=== PATIENT | female | born 1975 | race Caucasian/White ===

== ENCOUNTER 2024-10-09 20:10 | Observation (INO) ==
--- NOTE | 2024-10-09 20:28 | Emergency Department Note ---
History of Present Illness General Chief complaint: Leg Injury/Pain Stated complaint: BLOOD CLOT LEFT LEG POSSIBLE Time Seen by Provider: 10/09/24 20:26 History of Present Illness Maximum Pain Intensity: 6 This is a 49-year-old female that presents to the emergency department via private vehicle with complaints of "possible blood clot, left leg". Patient notes a "red ball" to the outside of her left knee. She notes area is very sore. She also notes some red streaking. She notes a history of blood clots and currently is on Coumadin. She also notes that she had a temperature at 6 PM around 101 F. She also feels chills. She did take acetaminophen for her symptoms. No chest pain or shortness of breath. She notes that she is in a left arm sling secondary to left arm fracture, following with [facility]. Home Medications Medication Instructions Recorded Confirmed Type acetaminophen 500 mg tablet 1,000 mg PO .Q6-8HR PRN Pain 10/09/24 10/09/24 History (Tylenol Extra Strength) fluticasone propionate 93 2 spray intranasal BID PRN 10/09/24 10/09/24 History mcg/actuation breath activated NEEDED aerosol (Xhance) omeprazole 40 mg capsule,delayed 40 mg PO DAILY 10/09/24 10/09/24 History release pramipexole 0.5 mg tablet 0.5 mg PO HS 10/09/24 10/09/24 History sertraline 50 mg tablet 50 mg PO HS 10/09/24 10/09/24 History warfarin 3 mg tablet (Jantoven) 3 mg PO DAILY 10/09/24 10/09/24 History warfarin 4 mg tablet (Jantoven) 4 mg PO DAILY 10/09/24 10/09/24 History oxycodone 5 mg tablet 5 mg PO Q6H PRN pain #15 tabs 10/10/24 Rx Allergies Allergy/AdvReac Type Severity Reaction Status Date / Time morphine Allergy Intermediate Hives Verified 10/10/24 07:25 Sulfa (Sulfonamide Allergy Intermediate Hives Verified 10/10/24 07:25 Antibiotics) Past Med/Surg History Problem List (Updated 10/10/24 @ 14:16 by Javed Griggs MD) Superficial thrombophlebitis Abnormal ultrasound of lower extremity (Acute) Anemia (Acute) Pain of left calf (Acute) Medical History (Updated 10/10/24 @ 14:16 by Javed Griggs MD) Anxiety Restless leg syndrome DVT (deep venous thrombosis) Prothrombin gene mutation CVA (cerebral vascular accident) Surgical History (Updated 10/10/24 @ 07:25 by Pearl Ross) History of lumbar fusion History of hysterectomy History of repair of atrial septal defect Family History (System 10/10/24 @ 07:25 by Pearl Ross) Other Cancer Diabetes Social History (System 10/10/24 @ 07:25 by Pearl Ross) Smoking Status: Current some day smoker Tobacco Type: Cigarettes Second Hand Exposure: No; Do You Dip or Chew Tobacco: No; Tobacco Cessation Education Requested by Patient: No Hx Alcohol Use: No Hx Substance Use: No Preferred Language: Wolof Communication Ability: Effective Sheet Catcher Required: No Beliefs That Will Affect Care: None Current Living Situation: Spouse Other Information That Helps Us Care for You: No Feels Safe at Home: Yes Safety Concerns: Feels Safe At This Time Assistive Devices: None Review of Systems A total of 10 systems reviewed and were otherwise negative Physical Exam Vital Signs Vital Signs - 24 hr 10/09/24 20:22 10/09/24 20:39 10/09/24 20:39 Temperature 36.7 C Temperature Source Oral Pulse Rate 106 H Pulse Rate [Finger] 76 Pulse Rhythm [Finger] Regular Pulse Strength [Finger] Normal Respiratory Rate 22 20 Respiratory Effort / Characteristics Non-Labored Spontaneous Non-Labored Spontaneous Respiratory Depth Normal Normal Respiratory Pattern Regular Regular Blood Pressure 135/84 Blood Pressure [Right Arm] 116/63 Blood Pressure Mean 101 Blood Pressure Mean [Right Arm] 80 Blood Pressure Position [Right Arm] Lying Pulse Oximetry 95 98 Oxygen Delivery Method Room Air Room Air Room Air Sepsis Recent Fever Within 48 Hours Yes Sepsis New/Unexplained Change in Mental Status No Sepsis Action Taken by Nursing No Action Required 10/09/24 21:56 10/09/24 22:00 Temperature Temperature Source Pulse Rate 83 Pulse Rate [Finger] 84 Pulse Rhythm [Finger] Regular Pulse Strength [Finger] Normal Respiratory Rate 20 Respiratory Effort / Characteristics Non-Labored Spontaneous Respiratory Depth Normal Respiratory Pattern Regular Blood Pressure Blood Pressure [Right Arm] 127/58 L Blood Pressure Mean Blood Pressure Mean [Right Arm] 81 Blood Pressure Position [Right Arm] Lying Pulse Oximetry 98 Oxygen Delivery Method Room Air Sepsis Recent Fever Within 48 Hours Sepsis New/Unexplained Change in Mental Status Sepsis Action Taken by Nursing VITAL SIGNS - Vital signs and nursing notes were reviewed. Stable and afebrile. GENERAL -49-year-old female appearing her stated age who is in no acute distress. Communicates well with provider and answers questions appropriately. SKIN - Without rashes. No meningeal or petechial rash. HEAD - NC/AT. EYES - PERRL with EOMI bilaterally. Sclera anicteric. EARS - No deformities of external structures noted on gross examination bilaterally. NOSE - Midline and without cyanosis. No epistaxis or purulent drainage noted. MOUTH/OROPHARYNX - Without perioral cyanosis. NECK - Neck with FROM. No nuchal rigidity. LUNGS - CTA CARDIAC - RRR EXTREMITIES - No clubbing or peripheral cyanosis. Left lower extremity mildly edematous, erythema with a nodular-like protrusion left lateral proximal tip/fib region. There is tracking erythema distal and proximal to this region. No palpable cord. +5/5 strength noted in UE/LE bilaterally. Left arm sling in place. NEUROLOGIC - Cranial nerves II through XII grossly intact. PSYCH -alert, oriented and pleasant on exam Course Administered Medications Discontinued Medications Hydromorphone HCl (Hydromorphone Inj 0.5 Mg/0.5 Ml Syr) 0.5 mg IV NOW STA Stop: 10/09/24 20:54 Last Admin: 10/09/24 21:08 Dose: 0.5 mg Documented By: JANN Hydromorphone HCl (Hydromorphone Inj 0.5 Mg/0.5 Ml Syr) 0.5 mg IV Q3H PRN PRN Reason: Pain (6,7,8,9,10) Stop: 10/24/24 01:00 Last Admin: 10/10/24 12:03 Dose: 0.5 mg Documented By: Admin: 10/10/24 06:03 Dose: 0.5 mg Documented By: Admin: 10/10/24 01:16 Dose: 0.5 mg Documented By: MADELINE Ceftriaxone Sodium (Rocephin) 2,000 mg in 50 mls @ 100 mls/hr IV NOW STA Stop: 10/10/24 00:12 Last Infusion: 10/10/24 00:34 Dose: Infused Documented By: Admin: 10/10/24 00:20 Dose: 100 mls/hr Documented By: YOGI Ondansetron HCl (Ondansetron Inj 2 Mg/Ml 2 Ml Vial) 4 mg IV NOW [facility] Stop: 10/09/24 20:54 Last Admin: 10/09/24 21:08 Dose: 4 mg Documented By: JANN Pantoprazole Sodium (Pantoprazole 40 Mg Tab) 40 mg PO DAILY [facility] Stop: 11/09/24 08:59 Last Admin: 10/10/24 07:59 Dose: 40 mg Documented By: WIL Warfarin Sodium (Warfarin Sod 4 Mg Tab) 4 mg PO DAILY@1600 [facility] Stop: 11/09/24 15:59 Last Admin: 10/10/24 15:42 Dose: 4 mg Documented By: WIL Warfarin Sodium (Warfarin Sod 3 Mg Tab) 3 mg PO DAILY@1600 [facility] Stop: 11/09/24 15:59 Last Admin: 10/10/24 15:41 Dose: 3 mg Documented By: WIL Medical Decision Making Laboratory Data 10/10/24 07:49 10/09/24 20:41 Lab Results 10/09/24 Range/Units 20:41 WBC 9.28 (4.8-10.8) K/ul RBC 4.19 L (4.20-5.40) M/uL Hgb 11.4 L (12.0-16.0) g/dl Hct 35.2 L (37.0-47.0) % MCV 84.0 (80.0-100.0) fL MCH 27.2 (25.0-34.0) pg MCHC 32.4 (32.0-36.0) g/dL RDW Std Deviation 44.7 (36.4-46.3) fL RDW Coeff of George 14.7 H (11.5-14.5) % Plt Count 253 (130-400) K/uL MPV 9.8 (9.4-12.4) fL Immature Gran % (Auto) 0.4 % Neut % (Auto) 67.6 % Lymph % (Auto) 22.7 % [place] % (Auto) 7.8 % Eos % (Auto) 1.0 % Baso % (Auto) 0.5 % Neut # (Auto) 6.27 (1.40-6.50) K/uL Lymph # (Auto) 2.11 (1.20-3.40) K/uL [place] # (Auto) 0.72 H (0.11-0.59) K/uL Eos # (Auto) 0.09 (0.00-0.50) K/uL Baso # (Auto) 0.05 (0.00-0.20) K/uL Immature Gran # (Auto) 0.04 (0.01-0.20) K/uL PT 18.8 H (9.0-12.0) Seconds INR 1.8 H (0.9-1.1) APTT 34 H (21-31) Seconds PTT Ratio 1.3 Sodium 137 (136-145) mmol/L Potassium 4.2 (3.5-5.1) mmol/L Chloride 105 (98-107) mmol/L Carbon Dioxide 27 (21-32) mmol/L Anion Gap 5 (3-11) BUN 15 (6-23) mg/dl Creatinine 0.75 (0.6-1.2) mg/dl Est Cr Clr Drug Dosing 117.8 ml/min eGFR 96.33 BUN/Creatinine Ratio 20.0 (10-20) Glucose 109 H (70-99(Fasting)) mg/dl Calcium 10.1 (8.6-10.3) mg/dl Total Bilirubin 0.4 (0.2-1.0) mg/dl AST 14 (13-39) U/L ALT 11 (7-52) U/L Alkaline Phosphatase 80 (34-104) U/L Total Protein 7.0 (6.0-8.3) gm/dl Albumin 3.8 (3.4-5.0) gm/dl Globulin 3.2 (2.5-4.0) gm/dl Albumin/Globulin Ratio 1.2 (0.9-2) Procalcitonin < 0.02 (0-0.5) ng/ml Imaging Data Radiologist's Impression: Tibia/Fibula X-Ray 10/09/24 20:39 Exam(s): XR LEFT TIB/FIB, 2 views EXAM: XR Left Tibia and Fibula, 2 Views CLINICAL HISTORY: L leg pain. TECHNIQUE: Frontal and lateral views of the left tibia and fibula. COMPARISON: No relevant prior studies available. FINDINGS: Bones/joints: The tibia and fibula are intact. Incidental chronic disc space narrowing with marginal hypertrophic osteophyte changes involving the lateral compartment of the knee. No acute fracture. No dislocation. Soft tissues: Diffuse soft tissue fullness with serpiginous tubular structures about the lateral, anterior and posterior aspects of the left calf. No tracking subcutaneous emphysema involving the soft tissues. IMPRESSION: Diffuse soft tissue fullness with serpiginous tubular structures about the lateral, anterior and posterior aspects of the left calf. Suspect superficial varicosities. No tracking subcutaneous emphysema. No acute osseous abnormality. Electronically signed by: Koko Albarado MD 10/10/24 01:09 AM Venous Doppler Study 10/09/24 20:39 Exam(s): US VENOUS LEFT LOWER EXTREMITY EXAM: US Duplex Left Lower Extremity Veins CLINICAL HISTORY: L leg pain. TECHNIQUE: Real-time duplex ultrasound scan of the left lower extremity veins integrating B-mode two-dimensional vascular structure, Doppler spectral analysis, color flow Doppler imaging and compression. COMPARISON: No relevant prior studies available. FINDINGS: Deep veins: No DVT in the visualized common femoral, femoral, proximal deep femoral or popliteal veins. The veins demonstrate normal color flow, are normally compressible, with normal phasic flow and/or augmentation response. The interrogated calf veins are patent. Superficial veins: Multiple serpiginous tubular echogenic structure involving the left calf with internal echogenic material and no evidence for internal color flow. The saphenofemoral junction is patent. Soft tissues: No acute findings. No popliteal cyst. IMPRESSION: 1. No evidence for deep vein thrombosis involving the left lower extremity. 2. Multiple serpiginous tubular echogenic structure involving the left calf with internal echogenic material and no evidence for internal color flow. Findings are most consistent with superficial varicosity thrombosis. No significant surrounding edema. Electronically signed by: Koko Albarado MD 10/10/24 01:11 AM [facility] Narrative Patient was seen and evaluated as above in room C08. Review was performed of triage nursing notes and vital signs. No previous visits for review in our EMR at time of evaluation. A thorough history and physical examination was performed. She presents for evaluation of left leg pain. This began a few weeks after a left leg injury. On my assessment the left lateral leg does have a slight protrusion/nodular-like abnormality with surrounding light pink erythema that tracks proximal and distal. The area is quite tender to palpation. Patient is tachycardic on arrival at 106, and notes fevers at home. Options of care were discussed with the patient. IV access was established. Labs were drawn. No leukocytosis. Mild anemia noted with hemoglobin of 11.4. INR subtherapeutic at 1.8. No evidence of kidney or liver failure. Procalcitonin undetectable. Blood culture pending. Left tib/fib x-ray per my interpretation negative for fracture. Doppler study of the left lower extremity per my interpretation does not reveal any DVT. However there is what appears to be a mostly occlusive thrombus within the varicose veins in the left lateral calf. This thrombus seems to extend from the mid anterior thigh down to the mid calf about 30 cm in length. Formal radiology report is pending. There is overlying erythema to the left lateral calf region which may be secondary to the clot indicating thrombophlebitis. However, with the patient noting fever prior to arrival and was mildly tachycardic on arrival, infectious etiology also considered such as secondary cellulitis. At this time we will cover with IV antibiotics and await blood culture. IV ceftriaxone ordered. Formal radiology reports are pending at this time. I do believe that further evaluation and management in the inpatient setting is warranted noting the patient's suspected thrombus development despite anticoagulation although will note is a bit subtherapeutic here. I discussed case with the hospitalist service, please refer to further documentation regarding her stay. Hospitalist service will manage the anticoagulation. GCS: 15 In the evaluation and treatment of this patient the following differential diagnoses were entertained: Cellulitis, abscess, DVT, superficial clot, sprain, strain, among others Impression & Plan Pain of left calf, Subjective fever, Anemia, Abnormal ultrasound of lower extremity Discharge Plan Visit Data Chief Complaint: Leg Injury/Pain Stated Complaint: BLOOD CLOT LEFT LEG POSSIBLE ED Provider: Diaz Barrios ED Midlevel Provider: Braulio Wong Discharge Problem: Pain of left calf, Subjective fever, Anemia, Abnormal ultrasound of lower extremity Patient Disposition: Admitted As Inpatient Condition: Good Discharge Instructions Interventions: ED Discharge Assessment Last Done: 10/10/24 00:48
[2024-10-09] MEDS: ONDANSETRON INJ 2 MG/ML 2 ML VIAL IV STA (21:08)
[2024-10-09] MEDS: HYDROmorphone INJ 0.5 MG/0.5 ML SYR IV STA (21:08)
[2024-10-09 21:28] LABS: Albumin Globulin Ratio 1.2 (0.9-2); Albumin Level 3.8 gm/dl (3.4-5.0); Bilirubin,Total 0.4 mg/dl (0.2-1.0); Calcium 10.1 mg/dl (8.6-10.3); Creatinine Clr Calc Pharmacy 117.8 ml/min; Globulin 3.2 gm/dl (2.5-4.0); Potassium 4.2 mmol/L (3.5-5.1)
[2024-10-09 21:36] LABS: INR 1.8 (0.9-1.1); Partial Thromboplastin Ratio 1.3; Partial Thromboplastin Time 34 Seconds (21-31); Prothrombin Time 18.8 Seconds (9.0-12.0)
[2024-10-09 21:40] LABS: Basophils # (auto) 0.05 K/uL (0.00-0.20); Basophils % (auto) 0.5 %; Eosinophils # (auto) 0.09 K/uL (0.00-0.50); Hematocrit (blood only) 35.2 % (37.0-47.0); Hemoglobin 11.4 g/dl (12.0-16.0); Immature Granulocytes # (auto) 0.04 K/uL (0.01-0.20); Immature Granulocytes % (auto) 0.4 %; Lymphocytes # (auto) 2.11 K/uL (1.20-3.40); Lymphocytes % (auto) 22.7 %; Mean Corpuscular Hemoglobin 27.2 pg (25.0-34.0); Mean Corpuscular Hgb Conc 32.4 g/dL (32.0-36.0); Mean Platelet Volume 9.8 fL (9.4-12.4); Monocytes # (auto) 0.72 K/uL (0.11-0.59); Monocytes % (auto) 7.8 %; Neutrophils # (auto) 6.27 K/uL (1.40-6.50); Neutrophils % (auto) 67.6 %; Platelet Count 253 K/uL (130-400); RDW Coefficient of Variation 14.7 % (11.5-14.5); RDW Standard Deviation 44.7 fL (36.4-46.3); Red Blood Count 4.19 M/uL (4.20-5.40); White Blood Count 9.28 K/ul (4.8-10.8)
--- NOTE | 2024-10-09 23:37 | History & Physical Report ---
Date of Service October 09, 2024 Assessment & Plan (1) Abnormal ultrasound of lower extremity: (2) Prothrombin gene mutation: (3) Restless leg syndrome: (4) Anxiety: Plan 49yo female with history of Prothrombin gene mutation with prior DVT/CVA on Coumadin anticoagulation presenting with swelling, tenderness of LLE following a fall on September 27. Tortuous varicosities, tenderness to palpation, warmth and mild erythema. Venous doppler study performed - results are pending. Preliminary read reveals no DVT. Mostly occlusive thrombus in the varicose veins of the left lateral calf - extensive, appx 30cm in length #Presumed superficial thrombophlebitis - formal read on US is pending. Patient has been on coumadin for history of Prothrombin gene mutation. INR is subtherapeutic at 1.8 -Continue Coumadin -Warm compresses -Tylenol and Dilaudid as needed for pain -Docusate Senna qHS with Miralax PRN -Hematology consultation appreciated #Prothrombin gene mutation - on anticoagulation with Coumadin. INR=1.8 -Continue Coumadin -Repeat INR in AM -Hematology consultation appreciated #Restless leg syndrome -Continue Pramipexole #Anxiety -Continue Sertraline History of Present Illness Chief Complaint: LLE pain, redness Primary Care Provider: Leonel Manriquezjassi Doris Trevino is a 49yo female with history of Prothrombin gene mutation. She has had two prior CVAs and a TIA (2005, 2009 and 2013). Found to have ASD with closure completed in 2009. She has been on Coumadin for anticoagulation and reports her INR is typically 2 or greater. She was tried on Xarelto in the past but failed. On 09/27/24 patient fell and landed on her left side. She broke her left proximal humerus which is being managed non-operatively with a sling. Since 09/27 she has had progressive swelling, tenderness and redness of her LLE lateral leg. Yesterday morning she had worsening tightness and warmth of her LLE. She did have a fever tonight at 101.4. No additional complaints. She denies chest pain, palpitations, cough, SOB, abdominal pain, nausea, vomiting or diarrhea. She has had some constipation from the Oxycodone she has been using for her shoulder pain. Allergies Allergy/AdvReac Type Severity Reaction Status Date / Time morphine Allergy Intermediate Hives Verified 10/09/24 22:37 Sulfa (Sulfonamide Allergy Intermediate Hives Verified 10/09/24 22:37 Antibiotics) Home Medications Medication Instructions Recorded Confirmed Type acetaminophen 500 mg tablet 1,000 mg PO .Q6-8HR PRN Pain 10/09/24 10/09/24 History (Tylenol Extra Strength) fluticasone propionate 93 2 spray intranasal BID PRN 10/09/24 10/09/24 History mcg/actuation breath activated NEEDED aerosol (Xhance) omeprazole 40 mg capsule,delayed 40 mg PO DAILY 10/09/24 10/09/24 History release pramipexole 0.5 mg tablet 0.5 mg PO HS 10/09/24 10/09/24 History sertraline 50 mg tablet 50 mg PO HS 10/09/24 10/09/24 History warfarin 3 mg tablet (Jantoven) 3 mg PO DAILY 10/09/24 10/09/24 History warfarin 4 mg tablet (Jantoven) 4 mg PO DAILY 10/09/24 10/09/24 History Past Med/Surg History Problem List (Updated 10/10/24 @ 00:59 by Sandra Herman DO) Abnormal ultrasound of lower extremity (Acute) Anemia (Acute) Pain of left calf (Acute) Medical History (Updated 10/10/24 @ 00:59 by Sandra Herman DO) Anxiety Restless leg syndrome DVT (deep venous thrombosis) Prothrombin gene mutation CVA (cerebral vascular accident) Surgical History (Updated 10/10/24 @ 00:56 by Sandra Herman DO) History of lumbar fusion History of hysterectomy History of repair of atrial septal defect Family History (Updated 10/10/24 @ 00:56 by Sandra Herman DO) Other Cancer Diabetes Social History Smoking Status: Current some day smoker Feels Safe at Home: Yes Review of Systems Review of Systems: All systems reviewed & are unremarkable except as noted in HPI & below Physical Exam Physical Exam: General: patient resting comfortably, NAD, non-toxic in appearance, AA&O x 4 Skin: warm, dry, intact, no rashes or lesions HEENT: NC/AT, PERRL, EOMI, anicteric sclera, conjunctiva without injection, external ear normal to inspection and nontender, nares patent, moist mucus membranes, dentition intact, no oropharyngeal lesions, neck supple, trachea midline, no LAD, no thyromegaly, no JVD Heart: +S1/S2, regular, no m/r/g Lungs: equal air entry bilaterally, no rales/rhonchi/wheezes Abd: +BS, soft, NT/ND, no masses/organomegaly/ascites Ext: tortuous varicosities of LLE of the thigh and leg, tenderness to palpation. Area of firm induration on left lateral knee with tenderness to palpation. Mild erythema of left leg, edema of left leg Neuro: nonfocal, patient AA&O x 4, speech intact, no facial droop, moving all extremities on command with equal strength 5/5 Results & Data Results & Data Vital Signs (Past 12 Hours) Vital Signs Temp Pulse Pulse Resp BP BP Pulse Ox 10/09/24 22:00 84 20 127/58 L 98 10/09/24 21:56 83 10/09/24 20:39 10/09/24 20:39 76 20 116/63 98 10/09/24 20:22 36.7 C 106 H 22 135/84 95 O2 Del Method 10/09/24 22:00 Room Air 10/09/24 21:56 10/09/24 20:39 Room Air 10/09/24 20:39 Room Air 10/09/24 20:22 Room Air Laboratory Results Laboratory Results WBC 9.28 K/ul (4.8-10.8) 10/09/24 20:41 RBC 4.19 M/uL (4.20-5.40) L 10/09/24 20:41 Hgb 11.4 g/dl (12.0-16.0) L 10/09/24 20:41 Hct 35.2 % (37.0-47.0) L 10/09/24 20:41 MCV 84.0 fL (80.0-100.0) 10/09/24 20:41 MCH 27.2 pg (25.0-34.0) 10/09/24 20:41 MCHC 32.4 g/dL (32.0-36.0) 10/09/24 20:41 RDW Std Deviation 44.7 fL (36.4-46.3) 10/09/24 20:41 RDW Coeff of George 14.7 % (11.5-14.5) H 10/09/24 20:41 Plt Count 253 K/uL (130-400) 10/09/24 20:41 MPV 9.8 fL (9.4-12.4) 10/09/24 20:41 Immature Gran % (Auto) 0.4 % 10/09/24 20:41 Neut % (Auto) 67.6 % 10/09/24 20:41 Lymph % (Auto) 22.7 % 10/09/24 20:41 [place] % (Auto) 7.8 % 10/09/24 20:41 Eos % (Auto) 1.0 % 10/09/24 20:41 Baso % (Auto) 0.5 % 10/09/24 20:41 Neut # (Auto) 6.27 K/uL (1.40-6.50) 10/09/24 20:41 Lymph # (Auto) 2.11 K/uL (1.20-3.40) 10/09/24 20:41 [place] # (Auto) 0.72 K/uL (0.11-0.59) H 10/09/24 20:41 Eos # (Auto) 0.09 K/uL (0.00-0.50) 10/09/24 20:41 Baso # (Auto) 0.05 K/uL (0.00-0.20) 10/09/24 20:41 Immature Gran # (Auto) 0.04 K/uL (0.01-0.20) 10/09/24 20:41 PT 18.8 Seconds (9.0-12.0) H 10/09/24 20:41 INR 1.8 (0.9-1.1) H 10/09/24 20:41 APTT 34 Seconds (21-31) H 10/09/24 20:41 PTT Ratio 1.3 10/09/24 20:41 Sodium 137 mmol/L (136-145) 10/09/24 20:41 Potassium 4.2 mmol/L (3.5-5.1) 10/09/24 20:41 Chloride 105 mmol/L (98-107) 10/09/24 20:41 Carbon Dioxide 27 mmol/L (21-32) 10/09/24 20:41 Anion Gap 5 (3-11) 10/09/24 20:41 BUN 15 mg/dl (6-23) 10/09/24 20:41 Creatinine 0.75 mg/dl (0.6-1.2) 10/09/24 20:41 Est Cr Clr Drug Dosing 117.8 ml/min 10/09/24 20:41 eGFR 96.33 10/09/24 20:41 BUN/Creatinine Ratio 20.0 (10-20) 10/09/24 20:41 Glucose 109 mg/dl (70-99(Fasting)) H 10/09/24 20:41 Calcium 10.1 mg/dl (8.6-10.3) 10/09/24 20:41 Total Bilirubin 0.4 mg/dl (0.2-1.0) 10/09/24 20:41 AST 14 U/L (13-39) 10/09/24 20:41 ALT 11 U/L (7-52) 10/09/24 20:41 Alkaline Phosphatase 80 U/L (34-104) 10/09/24 20:41 Total Protein 7.0 gm/dl (6.0-8.3) 10/09/24 20:41 Albumin 3.8 gm/dl (3.4-5.0) 10/09/24 20:41 Globulin 3.2 gm/dl (2.5-4.0) 10/09/24 20:41 Albumin/Globulin Ratio 1.2 (0.9-2) 10/09/24 20:41 Procalcitonin < 0.02 ng/ml (0-0.5) 10/09/24 20:41 Code Status & VTE Plan VTE Prophylaxis Plan VTE Prophylaxis will be ordered: Yes PG Care Time/CCT Total # of Minutes Spent Total Time Spent with Patient: Total time spent is greater than 50% in coordination of care (as documented) at patient's floor/unit and/or counseling patient: Coding Level of Care Code 53995 INT INP/OBS CARE 3/75MIN Diagnoses Abnormal ultrasound of lower extremity R93.6 Prothrombin gene mutation D68.52 Restless leg syndrome G25.81 Anxiety F41.9
[2024-10-10] MEDS: cefTRIAXone SODIUM 2,000 MG/50 ML BAG IV STA (00:20)
[2024-10-10] MEDS ORDERED: ACETAMINOPHEN 500 MG TAB PO PRN (01:01)
[2024-10-10] MEDS ORDERED: ONDANSETRON INJ 2 MG/ML 2 ML VIAL IV PRN (01:01)
[2024-10-10] MEDS ORDERED: POLYETHYLENE (MIRALAX) 17 GM PACK PO PRN (01:01)
[2024-10-10] MEDS ORDERED: HYDROmorphone INJ 0.5 MG/0.5 ML SYR IV PRN (01:01)
--- NOTE | 2024-10-10 01:10 | XRay Report ---
Exam(s): XR LEFT TIB/FIB, 2 views EXAM: XR Left Tibia and Fibula, 2 Views CLINICAL HISTORY: L leg pain. TECHNIQUE: Frontal and lateral views of the left tibia and fibula. COMPARISON: No relevant prior studies available. FINDINGS: Bones/joints: The tibia and fibula are intact. Incidental chronic disc space narrowing with marginal hypertrophic osteophyte changes involving the lateral compartment of the knee. No acute fracture. No dislocation. Soft tissues: Diffuse soft tissue fullness with serpiginous tubular structures about the lateral, anterior and posterior aspects of the left calf. No tracking subcutaneous emphysema involving the soft tissues. IMPRESSION: Diffuse soft tissue fullness with serpiginous tubular structures about the lateral, anterior and posterior aspects of the left calf. Suspect superficial varicosities. No tracking subcutaneous emphysema. No acute osseous abnormality. Electronically signed by: Koko Albarado MD 10/10/24 01:09 AM
--- NOTE | 2024-10-10 01:12 | Ultrasound Report ---
Exam(s): US VENOUS LEFT LOWER EXTREMITY EXAM: US Duplex Left Lower Extremity Veins CLINICAL HISTORY: L leg pain. TECHNIQUE: Real-time duplex ultrasound scan of the left lower extremity veins integrating B-mode two-dimensional vascular structure, Doppler spectral analysis, color flow Doppler imaging and compression. COMPARISON: No relevant prior studies available. FINDINGS: Deep veins: No DVT in the visualized common femoral, femoral, proximal deep femoral or popliteal veins. The veins demonstrate normal color flow, are normally compressible, with normal phasic flow and/or augmentation response. The interrogated calf veins are patent. Superficial veins: Multiple serpiginous tubular echogenic structure involving the left calf with internal echogenic material and no evidence for internal color flow. The saphenofemoral junction is patent. Soft tissues: No acute findings. No popliteal cyst. IMPRESSION: 1. No evidence for deep vein thrombosis involving the left lower extremity. 2. Multiple serpiginous tubular echogenic structure involving the left calf with internal echogenic material and no evidence for internal color flow. Findings are most consistent with superficial varicosity thrombosis. No significant surrounding edema. Electronically signed by: Koko Albarado MD 10/10/24 01:11 AM
[2024-10-10] MEDS: HYDROmorphone INJ 0.5 MG/0.5 ML SYR IV PRN (01:16)
[2024-10-10] MEDS: PANTOprazole 40 MG TAB PO SCH (07:59)
[2024-10-10 08:47] LABS: Hematocrit (blood only) 33.9 % (37.0-47.0); Hemoglobin 10.7 g/dl (12.0-16.0); Mean Corpuscular Hemoglobin 26.9 pg (25.0-34.0); Mean Corpuscular Hgb Conc 31.6 g/dL (32.0-36.0); Mean Corpuscular Volume 85.2 fL (80.0-100.0); Mean Platelet Volume 9.7 fL (9.4-12.4); Platelet Count 237 K/uL (130-400); RDW Coefficient of Variation 14.9 % (11.5-14.5); RDW Standard Deviation 46.3 fL (36.4-46.3); Red Blood Count 3.98 M/uL (4.20-5.40); White Blood Count 8.79 K/ul (4.8-10.8)
[2024-10-10 09:03] LABS: INR 2.1 (0.9-1.1); Prothrombin Time 21.2 Seconds (9.0-12.0)
--- NOTE | 2024-10-10 14:23 | Discharge Summary ---
Discharge Summary Date of Service October 10, 2024 Principal Dx & Hospital Course #1 = Principal Diagnosis (1) Superficial thrombophlebitis: Plan Doris Trevino is a 49 year old female observed overnight at [facility] from October 09 to 2024 due to left lower extremity swelling and pain. She was diagnosed with superficial thrombophlebitis IV Dilaudid overnight. INR 2.0 on a.m. labs. She will continue on warfarin gtt. prothrombin gene mutation. Superficial thrombophlebitis to be treated with ice, compression. Okay to take occasional ibuprofen despite warfarin use. She was also given a prescription for oxycodone for breakthrough pain. Notes For Next Care Provider Medication Changes From Visit Oxycodone for breakthrough pain Admission HPI Per Admitting Provider Doris Trevino is a 49yo female with history of Prothrombin gene mutation. She has had two prior CVAs and a TIA (2005, 2009 and 2013). Found to have ASD with closure completed in 2009. She has been on Coumadin for anticoagulation and reports her INR is typically 2 or greater. She was tried on Xarelto in the past but failed. On 09/27/24 patient fell and landed on her left side. She broke her left proximal humerus which is being managed non-operatively with a sling. Since 09/27 she has had progressive swelling, tenderness and redness of her LLE lateral leg. Yesterday morning she had worsening tightness and warmth of her LLE. She did have a fever tonight at 101.4. No additional complaints. She denies chest pain, palpitations, cough, SOB, abdominal pain, nausea, vomiting or diarrhea. She has had some constipation from the Oxycodone she has been using for her shoulder pain. Discharge Exam Skin Mild superficial thrombophlebitis erythema changes, prominent superficial blood vessels on left lower extremity Discharge Plan Discharge Items Patient Disposition: Home - Self-Care Reason For Visit: LLE PAIN, SWELLING Discharge Diagnosis: Superficial thrombophlebitis Condition on Discharge: Good Activity: Resume your previous activity Non-emergency contact: Primary Care Provider Call non-emergency contact if: you have any medication questions and your symptoms worsen Follow-up/Referrals: Leonel Hall [Primary Care Provider] - (PLEASE CALL YOUR PCP OFFICE AND MAKE A HOSPITAL FOLLOW UP VISIT IN 7-10 DAYS. I ATTEMPTED TO CALL YOUR PCP OFFICE X 2 AND WAS UNABLE TO ASSIST YOU WITH THIS.) Diet: Regular Addtl Attending Provider Instructions: You were observed overnight [facility] from October 09 to 2024 due to left lower extremity swelling and pain. You were diagnosed with superficial thrombophlebitis which is treated with ice, compression and anti-inflammatories. You are already taking warfarin for anticoagulation and should continue this. INR 2.0 on day of discharge. Taking ibuprofen with warfarin increases your bleeding risk however given no prior history of major bleeding okay to do this for up to 7 days as needed for pain and inflammation. Take acetaminophen first- line for pain. If your pain is not controlled on acetaminophen and ibuprofen, oxycodone has been provided for a limited course. Do not drive or operate heavy machinery on this medication. Pending Studies at Discharge: No Stand-Alone Forms: [facility], Pain - Opioid Pain Management, Work/School Release, Smoking Cessation Medications and DC Order Prescriptions: New oxycodone 5 mg tablet 5 mg PO Q6H PRN (Reason: pain) Qty: 15 0RF Continued omeprazole 40 mg capsule,delayed release(DR/EC) 40 mg PO DAILY acetaminophen [Tylenol Extra Strength] 500 mg Tablet 1,000 mg PO .Q6-8HR PRN (Reason: Pain) warfarin [Jantoven] 4 mg tablet 4 mg PO DAILY Rx Instructions: TOTAL DOSE 7 MG--TAKES WITH 3 MG TAB. warfarin [Jantoven] 3 mg tablet 3 mg PO DAILY Rx Instructions: TOTAL DOSE 7 MG--TAKES WITH 4 MG TAB. pramipexole 0.5 mg tablet 0.5 mg PO HS sertraline 50 mg tablet 50 mg PO HS Xhance 93 mcg/actuation aerosol breath activated 2 spray INTRANASAL BID PRN (Reason: NEEDED) Discharge Orders: Discharge Order (Routine); Ordered 10/10/24 Ordered By: Javed Valentin/Other Patient Handouts: ED Thrombophlebitis, Superficial Admission Data Admit Date/Time: 10/09/24 23:36 Attending Provider: Javed Griggs Admit Provider: Sandra Herman Primary Care Provider: Leonel Hall Other Providers: Sandra Herman Other Interventions: Discharge Summary Assessment (RN) Last Done: 10/10/24 15:09 Hospital Stay Data Consultations 10/09/24 23:07 ED Decision to Admit Stat Diagnostic Imagining Performed 10/09/24 20:39 US venous doppler LE LT Stat Pending Results Patient Have Any Pending Studies at Discharge: No Discharge Instructions Given to Patient (Per Discharging Provider) You were observed overnight [facility] from October 09 to 2024 due to left lower extremity swelling and pain. You were diagnosed with superficial thrombophlebitis which is treated with ice, compression and anti-inflammatories. You are already taking warfarin for anticoagulation and should continue this. INR 2.0 on day of discharge. Taking ibuprofen with warfarin increases your bleeding risk however given no prior history of major bleeding okay to do this for up to 7 days as needed for pain and inflammation. Take acetaminophen first- line for pain. If your pain is not controlled on acetaminophen and ibuprofen, oxycodone has been provided for a limited course. Do not drive or operate heavy machinery on this medication. Total Time Total Time Spent Total Time Spent (In Minutes): 35 Coding Level of Care Code 21694 INP/OBS DISCH >30 MIN Diagnoses Superficial thrombophlebitis I80.9
[2024-10-10 15:01] VITALS: BP 108/72; PULSE 84; RESP 16; TEMP 100; O2SAT 94
[2024-10-10] MEDS: WARFARIN SOD 3 MG TAB PO SCH (15:41)
[2024-10-10] MEDS: WARFARIN SOD 4 MG TAB PO SCH (15:42)
[2024-10-10] MEDS ORDERED: PRAMIPEXOLE DIHYDROCHLO 0.5 MG TAB PO SCH (21:00)
[2024-10-10] MEDS ORDERED: DOCUSATE SODIUM/SENNA 50/8.6MG TAB PO SCH (21:00)
[2024-10-10] MEDS ORDERED: SERTRALINE HCL 50 MG TABLET PO SCH (21:00)
== END 2024-10-10 17:16 | disposition home or self-care (01) ==
LOC: ED 20:10 → 3N 20:10 → SUATTDRO 23:36 → MERGE 23:36 → 3N 10-10 00:48

== ENCOUNTER 2025-07-03 06:29 | Inpatient (IN) ==
--- NOTE | 2025-07-03 06:56 | Emergency Department Note ---
Impression & Plan Acute confusion, Fall ED Provider Note HISTORY OF PRESENT ILLNESS: Patient is a 50-year-old female presenting after a fall. Patient reports that she had got up to go to the bathroom and was walking back to her bedroom when she tripped over something in her house and fell, landing on her right side. She denies striking her head or loss of consciousness. She is on Coumadin. She is complaining of right sided rib pain. EMS reports that and route the patient would have transient episodes of confusion in which she did not know where she was or what was going on. Patient denies any shortness of breath. Denies any nausea or vomiting. Denies any recent fevers. Denies any dysuria or hematuria. ROS: as above PHYSICAL EXAM: Constitutional: Patient appears in no acute distress. HENT: Head: Normocephalic and atraumatic. Eyes: EOMI, PERRL Mouth/Throat: Mucous membranes moist. Neck: Trachea midline. Neck supple. No midline cervical spine tenderness palpation. Cardiovascular: RRR, No murmurs, rubs or gallops. Intact distal pulses. Pulmonary/Chest: No respiratory distress. Breath sounds clear and equal bilaterally. No wheezes or rales. No chest wall tenderness to palpation. Abdominal: Abdomen soft, no tenderness, rebound or guarding. Musculoskeletal: No edema, tenderness or deformity noted. Skin: Warm and dry. No rash, erythema, pallor or cyanosis Psychiatric: Appropriate mood and affect for situation. Neurological: Alert and keenly responsive. CN II-XII grossly intact, moving all extremities equally and fully. MDM: - Vitals signs stable. - History obtained via patient. History as above. - Chronic conditions affecting care: CVA; DVT; anxiety - Differential diagnoses include, but are not limited to: CVA; intracranial hemorrhage; dysrhythmia; electrolyte abnormality - Order placed for continuous cardiac monitoring. At this time, monitor showed rate of 76 bpm with normal sinus rhythm, per my interpretation. - External medical records reviewed. Discharge summary dated 10/10/2024 was reviewed. Patient was admitted for a superficial thrombophlebitis. - EKG image interpreted by myself showed normal sinus rhythm. Rate 73 bpm. QT 384. No acute ischemic changes. - Laboratory workup interpreted by myself showed normal WBC; elevated INR (1.5 - subtherapeutic for pt on coumadin); stable electrolytes; normal troponin; normal TSH - UA negative for infection - CXR image reviewed interpreted by myself was negative for pneumothorax, per my interpretation. - CT head wo contrast negative for acute intracranial pathology. - Patient given 1g IV tylenol in ER for complaint of headache - On reassessment, patient is having transient episodes of confusion. She will stare off into space and have difficulties recalling the conversation that was just had or events of the morning. Significant other is at bedside and reports that she presented similarly when she had a stroke. Nursing called and stated that when the patient went to the bathroom and leaned forward slightly, she felt like she was losing control of her balance and was going to fall over. She reported to nursing staff that she felt very unsteady and "off." - Patient does not have any focal neurological deficits. However, CTA head/neck ordered. - CTA head/neck negative for acute pathology - Discussion was had with rn case manager hospice about patient's case and need for admission - Hospitalist consulted for admission - Patient admitted to [facility] service for further evaluation and management. ASSESSMENT AND PLAN: Diagnosis: Acute confusion; fall Plan: Admit Past Med/Surg History Problem List (Updated 07/03/25 @ 12:00 by Brittany Batista MD) Fall (Acute) Acute confusion (Acute) Superficial thrombophlebitis Abnormal ultrasound of lower extremity (Acute) Anemia (Acute) Pain of left calf (Acute) Medical History (Updated 07/03/25 @ 12:00 by Brittany Batista MD) Anxiety Restless leg syndrome DVT (deep venous thrombosis) Prothrombin gene mutation CVA (cerebral vascular accident) Surgical History (Updated 10/10/24 @ 07:25 by Pearl Ross) History of lumbar fusion History of hysterectomy History of repair of atrial septal defect Family History (System 10/10/24 @ 07:25 by Pearl Ross) Other Cancer Diabetes Social History (System 10/10/24 @ 07:25 by Pearl Ross) Smoking Status: Current some day smoker Tobacco Type: Cigarettes Second Hand Exposure: No; Do You Dip or Chew Tobacco: No; Hx Alcohol Use: No Hx Substance Use: No Preferred Language: Vietnamese Communication Ability: Effective Manager Winter Required: No Beliefs That Will Affect Care: None Current Living Situation: Spouse Feels Safe at Home: Yes Assistive Devices: None Allergies Allergies Allergy/AdvReac Type Severity Reaction Status Date / Time morphine Allergy Intermediate Hives Verified 10/10/24 07:25 Sulfa (Sulfonamide Allergy Intermediate Hives Verified 10/10/24 07:25 Antibiotics) Home Meds Home Medications Medication Instructions Recorded Confirmed acetaminophen 500 mg tablet 1,000 mg PO .Q6-8HR PRN Pain 10/09/24 10/09/24 (Tylenol Extra Strength) fluticasone propionate 93 2 spray intranasal BID PRN 10/09/24 10/09/24 mcg/actuation breath activated NEEDED aerosol (Xhance) omeprazole 40 mg capsule,delayed 40 mg PO DAILY 10/09/24 10/09/24 release pramipexole 0.5 mg tablet 0.5 mg PO HS 10/09/24 10/09/24 sertraline 50 mg tablet 50 mg PO HS 10/09/24 10/09/24 warfarin 3 mg tablet (Jantoven) 3 mg PO DAILY 10/09/24 10/09/24 warfarin 4 mg tablet (Jantoven) 4 mg PO DAILY 10/09/24 10/09/24 Previous Rx's Medication Instructions Recorded oxycodone 5 mg tablet 5 mg PO Q6H PRN pain #15 tabs 10/10/24 Results & Data (ED) Vital Signs Vital Signs - 24 hr 07/03/25 06:30 07/03/25 06:30 07/03/25 06:38 Temperature 36.9 C 36.9 C Temperature Source Oral Oral Pulse Rate 79 77 Pulse Rate [Apical] 76 Pulse Rate from SpO2 Sensor Pulse Rhythm Regular Pulse Rhythm [Apical] Regular Pulse Strength Normal Pulse Strength [Apical] Normal Respiratory Rate 20 20 Respiratory Effort / Characteristics Non-Labored Spontaneous Non-Labored Spontaneous Respiratory Depth Normal Normal Respiratory Pattern Regular Regular Blood Pressure 136/106 H Blood Pressure [Right Arm] 133/99 Blood Pressure Mean 116 Blood Pressure Mean [Right Arm] 110 Blood Pressure Position Lying Blood Pressure Position [Right Arm] Lying Pulse Oximetry 96 96 Oxygen Delivery Method Room Air Room Air Sepsis Recent Fever Within 48 Hours No Sepsis New/Unexplained Change in Mental Status No Sepsis Action Taken by Nursing No Action Required 07/03/25 06:38 07/03/25 06:38 07/03/25 06:38 Temperature Temperature Source Pulse Rate Pulse Rate [Apical] Pulse Rate from SpO2 Sensor Pulse Rhythm Pulse Rhythm [Apical] Pulse Strength Pulse Strength [Apical] Respiratory Rate Respiratory Effort / Characteristics Respiratory Depth Respiratory Pattern Blood Pressure 136/106 H 136/106 H 136/106 H Blood Pressure [Right Arm] Blood Pressure Mean 118 118 118 Blood Pressure Mean [Right Arm] Blood Pressure Position Blood Pressure Position [Right Arm] Pulse Oximetry Oxygen Delivery Method Sepsis Recent Fever Within 48 Hours Sepsis New/Unexplained Change in Mental Status Sepsis Action Taken by Nursing 07/03/25 06:38 07/03/25 06:38 07/03/25 06:39 Temperature Temperature Source Pulse Rate 74 Pulse Rate [Apical] Pulse Rate from SpO2 Sensor 74 Pulse Rhythm Pulse Rhythm [Apical] Pulse Strength Pulse Strength [Apical] Respiratory Rate 19 Respiratory Effort / Characteristics Respiratory Depth Respiratory Pattern Blood Pressure 136/106 H 136/106 H Blood Pressure [Right Arm] Blood Pressure Mean 118 118 Blood Pressure Mean [Right Arm] Blood Pressure Position Blood Pressure Position [Right Arm] Pulse Oximetry 96 Oxygen Delivery Method Sepsis Recent Fever Within 48 Hours Sepsis New/Unexplained Change in Mental Status Sepsis Action Taken by Nursing 07/03/25 06:42 07/03/25 06:45 07/03/25 06:46 Temperature Temperature Source Pulse Rate 82 79 75 Pulse Rate [Apical] Pulse Rate from SpO2 Sensor 81 80 Pulse Rhythm Regular Pulse Rhythm [Apical] Pulse Strength Pulse Strength [Apical] Respiratory Rate 28 H 18 20 Respiratory Effort / Characteristics Respiratory Depth Respiratory Pattern Blood Pressure Blood Pressure [Right Arm] Blood Pressure Mean Blood Pressure Mean [Right Arm] Blood Pressure Position Blood Pressure Position [Right Arm] Pulse Oximetry 95 95 95 Oxygen Delivery Method Room Air Sepsis Recent Fever Within 48 Hours Sepsis New/Unexplained Change in Mental Status Sepsis Action Taken by Nursing 07/03/25 06:46 07/03/25 06:46 07/03/25 06:46 Temperature Temperature Source Pulse Rate Pulse Rate [Apical] Pulse Rate from SpO2 Sensor Pulse Rhythm Pulse Rhythm [Apical] Pulse Strength Pulse Strength [Apical] Respiratory Rate Respiratory Effort / Characteristics Respiratory Depth Respiratory Pattern Blood Pressure 133/99 133/99 133/99 Blood Pressure [Right Arm] Blood Pressure Mean 120 120 120 Blood Pressure Mean [Right Arm] Blood Pressure Position Blood Pressure Position [Right Arm] Pulse Oximetry Oxygen Delivery Method Sepsis Recent Fever Within 48 Hours Sepsis New/Unexplained Change in Mental Status Sepsis Action Taken by Nursing 07/03/25 06:46 07/03/25 06:46 07/03/25 06:51 Temperature Temperature Source Pulse Rate 77 Pulse Rate [Apical] Pulse Rate from SpO2 Sensor Pulse Rhythm Pulse Rhythm [Apical] Pulse Strength Pulse Strength [Apical] Respiratory Rate 18 Respiratory Effort / Characteristics Respiratory Depth Respiratory Pattern Blood Pressure 133/99 133/99 Blood Pressure [Right Arm] Blood Pressure Mean 120 120 Blood Pressure Mean [Right Arm] Blood Pressure Position Blood Pressure Position [Right Arm] Pulse Oximetry Oxygen Delivery Method Sepsis Recent Fever Within 48 Hours Sepsis New/Unexplained Change in Mental Status Sepsis Action Taken by Nursing 07/03/25 07:12 07/03/25 07:12 07/03/25 07:12 Temperature Temperature Source Pulse Rate Pulse Rate [Apical] Pulse Rate from SpO2 Sensor Pulse Rhythm Pulse Rhythm [Apical] Pulse Strength Pulse Strength [Apical] Respiratory Rate Respiratory Effort / Characteristics Respiratory Depth Respiratory Pattern Blood Pressure 137/91 137/91 137/91 Blood Pressure [Right Arm] Blood Pressure Mean 102 102 102 Blood Pressure Mean [Right Arm] Blood Pressure Position Blood Pressure Position [Right Arm] Pulse Oximetry Oxygen Delivery Method Sepsis Recent Fever Within 48 Hours Sepsis New/Unexplained Change in Mental Status Sepsis Action Taken by Nursing 07/03/25 07:12 07/03/25 07:12 07/03/25 07:12 Temperature Temperature Source Pulse Rate 73 Pulse Rate [Apical] Pulse Rate from SpO2 Sensor 74 Pulse Rhythm Pulse Rhythm [Apical] Pulse Strength Pulse Strength [Apical] Respiratory Rate Respiratory Effort / Characteristics Respiratory Depth Respiratory Pattern Blood Pressure 137/91 137/91 Blood Pressure [Right Arm] Blood Pressure Mean 102 102 Blood Pressure Mean [Right Arm] Blood Pressure Position Blood Pressure Position [Right Arm] Pulse Oximetry 95 Oxygen Delivery Method Sepsis Recent Fever Within 48 Hours Sepsis New/Unexplained Change in Mental Status Sepsis Action Taken by Nursing 07/03/25 07:21 07/03/25 07:30 07/03/25 07:42 Temperature Temperature Source Pulse Rate 73 74 80 Pulse Rate [Apical] Pulse Rate from SpO2 Sensor 74 75 Pulse Rhythm Pulse Rhythm [Apical] Pulse Strength Pulse Strength [Apical] Respiratory Rate Respiratory Effort / Characteristics Respiratory Depth Respiratory Pattern Blood Pressure Blood Pressure [Right Arm] Blood Pressure Mean Blood Pressure Mean [Right Arm] Blood Pressure Position Blood Pressure Position [Right Arm] Pulse Oximetry 95 97 Oxygen Delivery Method Sepsis Recent Fever Within 48 Hours Sepsis New/Unexplained Change in Mental Status Sepsis Action Taken by Nursing 07/03/25 07:51 07/03/25 08:00 07/03/25 08:12 Temperature Temperature Source Pulse Rate 76 82 74 Pulse Rate [Apical] Pulse Rate from SpO2 Sensor Pulse Rhythm Pulse Rhythm [Apical] Pulse Strength Pulse Strength [Apical] Respiratory Rate 24 17 Respiratory Effort / Characteristics Respiratory Depth Respiratory Pattern Blood Pressure Blood Pressure [Right Arm] Blood Pressure Mean Blood Pressure Mean [Right Arm] Blood Pressure Position Blood Pressure Position [Right Arm] Pulse Oximetry Oxygen Delivery Method Sepsis Recent Fever Within 48 Hours Sepsis New/Unexplained Change in Mental Status Sepsis Action Taken by Nursing 07/03/25 08:30 07/03/25 08:31 07/03/25 08:31 Temperature Temperature Source Pulse Rate 78 Pulse Rate [Apical] Pulse Rate from SpO2 Sensor 77 Pulse Rhythm Pulse Rhythm [Apical] Pulse Strength Pulse Strength [Apical] Respiratory Rate Respiratory Effort / Characteristics Respiratory Depth Respiratory Pattern Blood Pressure 142/93 H 142/93 H Blood Pressure [Right Arm] Blood Pressure Mean 108 108 Blood Pressure Mean [Right Arm] Blood Pressure Position Blood Pressure Position [Right Arm] Pulse Oximetry 96 Oxygen Delivery Method Sepsis Recent Fever Within 48 Hours Sepsis New/Unexplained Change in Mental Status Sepsis Action Taken by Nursing 07/03/25 08:31 07/03/25 08:31 07/03/25 08:31 Temperature Temperature Source Pulse Rate Pulse Rate [Apical] Pulse Rate from SpO2 Sensor Pulse Rhythm Pulse Rhythm [Apical] Pulse Strength Pulse Strength [Apical] Respiratory Rate Respiratory Effort / Characteristics Respiratory Depth Respiratory Pattern Blood Pressure 142/93 H 142/93 H 142/93 H Blood Pressure [Right Arm] Blood Pressure Mean 108 108 108 Blood Pressure Mean [Right Arm] Blood Pressure Position Blood Pressure Position [Right Arm] Pulse Oximetry Oxygen Delivery Method Sepsis Recent Fever Within 48 Hours Sepsis New/Unexplained Change in Mental Status Sepsis Action Taken by Nursing 07/03/25 08:42 07/03/25 08:51 07/03/25 09:00 Temperature Temperature Source Pulse Rate 74 68 75 Pulse Rate [Apical] Pulse Rate from SpO2 Sensor 74 69 74 Pulse Rhythm Pulse Rhythm [Apical] Pulse Strength Pulse Strength [Apical] Respiratory Rate 23 24 Respiratory Effort / Characteristics Respiratory Depth Respiratory Pattern Blood Pressure Blood Pressure [Right Arm] Blood Pressure Mean Blood Pressure Mean [Right Arm] Blood Pressure Position Blood Pressure Position [Right Arm] Pulse Oximetry 94 96 95 Oxygen Delivery Method Sepsis Recent Fever Within 48 Hours Sepsis New/Unexplained Change in Mental Status Sepsis Action Taken by Nursing 07/03/25 09:00 07/03/25 09:00 07/03/25 09:00 Temperature Temperature Source Pulse Rate Pulse Rate [Apical] Pulse Rate from SpO2 Sensor Pulse Rhythm Pulse Rhythm [Apical] Pulse Strength Pulse Strength [Apical] Respiratory Rate Respiratory Effort / Characteristics Respiratory Depth Respiratory Pattern Blood Pressure 138/100 138/100 138/100 Blood Pressure [Right Arm] Blood Pressure Mean 105 105 105 Blood Pressure Mean [Right Arm] Blood Pressure Position Blood Pressure Position [Right Arm] Pulse Oximetry Oxygen Delivery Method Sepsis Recent Fever Within 48 Hours Sepsis New/Unexplained Change in Mental Status Sepsis Action Taken by Nursing 07/03/25 09:00 07/03/25 09:00 07/03/25 09:00 Temperature 36.8 C Temperature Source Oral Pulse Rate Pulse Rate [Apical] Pulse Rate from SpO2 Sensor Pulse Rhythm Pulse Rhythm [Apical] Pulse Strength Pulse Strength [Apical] Respiratory Rate Respiratory Effort / Characteristics Non-Labored Spontaneous Respiratory Depth Normal Respiratory Pattern Regular Blood Pressure 138/100 138/100 Blood Pressure [Right Arm] Blood Pressure Mean 105 105 Blood Pressure Mean [Right Arm] Blood Pressure Position Blood Pressure Position [Right Arm] Pulse Oximetry Oxygen Delivery Method Room Air Sepsis Recent Fever Within 48 Hours Sepsis New/Unexplained Change in Mental Status Sepsis Action Taken by Nursing 07/03/25 09:12 07/03/25 09:21 07/03/25 09:30 Temperature Temperature Source Pulse Rate 74 80 76 Pulse Rate [Apical] Pulse Rate from SpO2 Sensor 75 81 75 Pulse Rhythm Pulse Rhythm [Apical] Pulse Strength Pulse Strength [Apical] Respiratory Rate 24 15 17 Respiratory Effort / Characteristics Respiratory Depth Respiratory Pattern Blood Pressure Blood Pressure [Right Arm] Blood Pressure Mean Blood Pressure Mean [Right Arm] Blood Pressure Position Blood Pressure Position [Right Arm] Pulse Oximetry 95 97 97 Oxygen Delivery Method Sepsis Recent Fever Within 48 Hours Sepsis New/Unexplained Change in Mental Status Sepsis Action Taken by Nursing 07/03/25 09:30 07/03/25 09:30 07/03/25 09:30 Temperature Temperature Source Pulse Rate Pulse Rate [Apical] Pulse Rate from SpO2 Sensor Pulse Rhythm Pulse Rhythm [Apical] Pulse Strength Pulse Strength [Apical] Respiratory Rate Respiratory Effort / Characteristics Respiratory Depth Respiratory Pattern Blood Pressure 126/104 H 126/104 H 126/104 H Blood Pressure [Right Arm] Blood Pressure Mean 107 107 107 Blood Pressure Mean [Right Arm] Blood Pressure Position Blood Pressure Position [Right Arm] Pulse Oximetry Oxygen Delivery Method Sepsis Recent Fever Within 48 Hours Sepsis New/Unexplained Change in Mental Status Sepsis Action Taken by Nursing 07/03/25 09:30 07/03/25 09:30 07/03/25 09:45 Temperature Temperature Source Pulse Rate 71 Pulse Rate [Apical] Pulse Rate from SpO2 Sensor Pulse Rhythm Pulse Rhythm [Apical] Pulse Strength Pulse Strength [Apical] Respiratory Rate 21 Respiratory Effort / Characteristics Respiratory Depth Respiratory Pattern Blood Pressure 126/104 H 126/104 H Blood Pressure [Right Arm] Blood Pressure Mean 107 107 Blood Pressure Mean [Right Arm] Blood Pressure Position Blood Pressure Position [Right Arm] Pulse Oximetry Oxygen Delivery Method Sepsis Recent Fever Within 48 Hours Sepsis New/Unexplained Change in Mental Status Sepsis Action Taken by Nursing 07/03/25 09:51 07/03/25 10:00 07/03/25 10:00 Temperature 36.8 C Temperature Source Oral Pulse Rate 67 Pulse Rate [Apical] Pulse Rate from SpO2 Sensor 68 Pulse Rhythm Pulse Rhythm [Apical] Pulse Strength Pulse Strength [Apical] Respiratory Rate Respiratory Effort / Characteristics Non-Labored Respiratory Depth Normal Respiratory Pattern Regular Blood Pressure 123/85 Blood Pressure [Right Arm] Blood Pressure Mean 98 Blood Pressure Mean [Right Arm] Blood Pressure Position Blood Pressure Position [Right Arm] Pulse Oximetry 95 Oxygen Delivery Method Sepsis Recent Fever Within 48 Hours Sepsis New/Unexplained Change in Mental Status Sepsis Action Taken by Nursing 07/03/25 10:00 07/03/25 10:00 07/03/25 10:00 Temperature Temperature Source Pulse Rate Pulse Rate [Apical] Pulse Rate from SpO2 Sensor Pulse Rhythm Pulse Rhythm [Apical] Pulse Strength Pulse Strength [Apical] Respiratory Rate Respiratory Effort / Characteristics Respiratory Depth Respiratory Pattern Blood Pressure 123/85 123/85 123/85 Blood Pressure [Right Arm] Blood Pressure Mean 98 98 98 Blood Pressure Mean [Right Arm] Blood Pressure Position Blood Pressure Position [Right Arm] Pulse Oximetry Oxygen Delivery Method Sepsis Recent Fever Within 48 Hours Sepsis New/Unexplained Change in Mental Status Sepsis Action Taken by Nursing 07/03/25 10:00 07/03/25 10:00 07/03/25 10:12 Temperature Temperature Source Pulse Rate 71 83 Pulse Rate [Apical] Pulse Rate from SpO2 Sensor 71 79 Pulse Rhythm Pulse Rhythm [Apical] Pulse Strength Pulse Strength [Apical] Respiratory Rate 21 Respiratory Effort / Characteristics Respiratory Depth Respiratory Pattern Blood Pressure 123/85 Blood Pressure [Right Arm] Blood Pressure Mean 98 Blood Pressure Mean [Right Arm] Blood Pressure Position Blood Pressure Position [Right Arm] Pulse Oximetry 96 95 Oxygen Delivery Method Sepsis Recent Fever Within 48 Hours Sepsis New/Unexplained Change in Mental Status Sepsis Action Taken by Nursing 07/03/25 10:21 07/03/25 10:30 07/03/25 10:37 Temperature Temperature Source Pulse Rate 81 85 76 Pulse Rate [Apical] Pulse Rate from SpO2 Sensor 78 Pulse Rhythm Pulse Rhythm [Apical] Pulse Strength Pulse Strength [Apical] Respiratory Rate 20 20 Respiratory Effort / Characteristics Respiratory Depth Respiratory Pattern Blood Pressure Blood Pressure [Right Arm] Blood Pressure Mean Blood Pressure Mean [Right Arm] Blood Pressure Position Blood Pressure Position [Right Arm] Pulse Oximetry 97 Oxygen Delivery Method Sepsis Recent Fever Within 48 Hours Sepsis New/Unexplained Change in Mental Status Sepsis Action Taken by Nursing 07/03/25 10:42 07/03/25 10:54 07/03/25 11:00 Temperature Temperature Source Pulse Rate 92 H 77 71 Pulse Rate [Apical] Pulse Rate from SpO2 Sensor Pulse Rhythm Pulse Rhythm [Apical] Pulse Strength Pulse Strength [Apical] Respiratory Rate 22 Respiratory Effort / Characteristics Respiratory Depth Respiratory Pattern Blood Pressure Blood Pressure [Right Arm] Blood Pressure Mean Blood Pressure Mean [Right Arm] Blood Pressure Position Blood Pressure Position [Right Arm] Pulse Oximetry Oxygen Delivery Method Sepsis Recent Fever Within 48 Hours Sepsis New/Unexplained Change in Mental Status Sepsis Action Taken by Nursing 07/03/25 11:12 07/03/25 11:21 07/03/25 11:30 Temperature Temperature Source Pulse Rate 70 81 86 Pulse Rate [Apical] Pulse Rate from SpO2 Sensor Pulse Rhythm Pulse Rhythm [Apical] Pulse Strength Pulse Strength [Apical] Respiratory Rate 22 18 16 Respiratory Effort / Characteristics Respiratory Depth Respiratory Pattern Blood Pressure Blood Pressure [Right Arm] Blood Pressure Mean Blood Pressure Mean [Right Arm] Blood Pressure Position Blood Pressure Position [Right Arm] Pulse Oximetry Oxygen Delivery Method Sepsis Recent Fever Within 48 Hours Sepsis New/Unexplained Change in Mental Status Sepsis Action Taken by Nursing 07/03/25 11:31 07/03/25 11:31 07/03/25 11:31 Temperature Temperature Source Pulse Rate Pulse Rate [Apical] Pulse Rate from SpO2 Sensor Pulse Rhythm Pulse Rhythm [Apical] Pulse Strength Pulse Strength [Apical] Respiratory Rate Respiratory Effort / Characteristics Respiratory Depth Respiratory Pattern Blood Pressure 119/73 119/73 119/73 Blood Pressure [Right Arm] Blood Pressure Mean 78 78 78 Blood Pressure Mean [Right Arm] Blood Pressure Position Blood Pressure Position [Right Arm] Pulse Oximetry Oxygen Delivery Method Sepsis Recent Fever Within 48 Hours Sepsis New/Unexplained Change in Mental Status Sepsis Action Taken by Nursing 07/03/25 11:31 07/03/25 11:31 07/03/25 11:42 Temperature Temperature Source Pulse Rate 76 Pulse Rate [Apical] Pulse Rate from SpO2 Sensor 76 Pulse Rhythm Pulse Rhythm [Apical] Pulse Strength Pulse Strength [Apical] Respiratory Rate Respiratory Effort / Characteristics Respiratory Depth Respiratory Pattern Blood Pressure 119/73 119/73 Blood Pressure [Right Arm] Blood Pressure Mean 78 78 Blood Pressure Mean [Right Arm] Blood Pressure Position Blood Pressure Position [Right Arm] Pulse Oximetry 94 Oxygen Delivery Method Sepsis Recent Fever Within 48 Hours Sepsis New/Unexplained Change in Mental Status Sepsis Action Taken by Nursing 07/03/25 11:51 07/03/25 12:00 07/03/25 12:00 Temperature 36.8 C Temperature Source Oral Pulse Rate 70 71 Pulse Rate [Apical] Pulse Rate from SpO2 Sensor 70 69 Pulse Rhythm Pulse Rhythm [Apical] Pulse Strength Pulse Strength [Apical] Respiratory Rate 23 Respiratory Effort / Characteristics Non-Labored Spontaneous Respiratory Depth Normal Respiratory Pattern Regular Blood Pressure Blood Pressure [Right Arm] Blood Pressure Mean Blood Pressure Mean [Right Arm] Blood Pressure Position Blood Pressure Position [Right Arm] Pulse Oximetry 95 94 Oxygen Delivery Method Sepsis Recent Fever Within 48 Hours Sepsis New/Unexplained Change in Mental Status Sepsis Action Taken by Nursing 07/03/25 12:00 07/03/25 12:00 07/03/25 12:00 Temperature Temperature Source Pulse Rate Pulse Rate [Apical] Pulse Rate from SpO2 Sensor Pulse Rhythm Pulse Rhythm [Apical] Pulse Strength Pulse Strength [Apical] Respiratory Rate Respiratory Effort / Characteristics Respiratory Depth Respiratory Pattern Blood Pressure 125/96 125/96 125/96 Blood Pressure [Right Arm] Blood Pressure Mean 99 99 99 Blood Pressure Mean [Right Arm] Blood Pressure Position Blood Pressure Position [Right Arm] Pulse Oximetry Oxygen Delivery Method Sepsis Recent Fever Within 48 Hours Sepsis New/Unexplained Change in Mental Status Sepsis Action Taken by Nursing 07/03/25 12:00 07/03/25 12:00 07/03/25 12:12 Temperature Temperature Source Pulse Rate 83 Pulse Rate [Apical] Pulse Rate from SpO2 Sensor 81 Pulse Rhythm Pulse Rhythm [Apical] Pulse Strength Pulse Strength [Apical] Respiratory Rate 14 Respiratory Effort / Characteristics Respiratory Depth Respiratory Pattern Blood Pressure 125/96 125/96 Blood Pressure [Right Arm] Blood Pressure Mean 99 99 Blood Pressure Mean [Right Arm] Blood Pressure Position Blood Pressure Position [Right Arm] Pulse Oximetry 94 Oxygen Delivery Method Sepsis Recent Fever Within 48 Hours Sepsis New/Unexplained Change in Mental Status Sepsis Action Taken by Nursing Laboratory Data 07/03/25 06:43 07/03/25 07:47 Lab Results 07/03/25 07/03/25 07/03/25 Range/Units 06:43 07:47 10:10 WBC 5.13 (4.8-10.8) K/ul RBC 5.20 (4.20-5.40) M/uL Hgb 14.1 (12.0-16.0) g/dL Hct 44.0 (37.0-47.0) % MCV 84.6 (80.0-100.0) fL MCH 27.1 (25.0-34.0) pg MCHC 32.0 (32.0-36.0) g/dL RDW Std Deviation 44.0 (36.4-46.3) fL RDW Coeff of George 14.4 (11.5-14.5) % Plt Count 215 (130-400) K/uL MPV 10.1 (9.4-12.4) fL Immature Gran % (Auto) 0.8 % Neut % (Auto) 75.2 % Lymph % (Auto) 16.2 % [place] % (Auto) 7.0 % Eos % (Auto) 0.4 % Baso % (Auto) 0.4 % Neut # (Auto) 3.86 (1.40-6.50) K/uL Lymph # (Auto) 0.83 L (1.20-3.40) K/uL Candler # (Auto) 0.36 (0.11-0.59) K/uL Eos # (Auto) 0.02 (0.00-0.50) K/uL Baso # (Auto) 0.02 (0.00-0.20) K/uL Immature Gran # (Auto) 0.04 (0.01-0.20) K/uL PT Cancelled 15.1 H INR Cancelled 1.5 H Sodium TNP 139 Potassium TNP 4.5 Chloride TNP 109 H Carbon Dioxide TNP 25 Anion Gap TNP 5 BUN TNP 12 Creatinine TNP 0.82 Est Cr Clr Drug Dosing TNP 105.2 eGFR TNP 86.01 BUN/Creatinine Ratio TNP 14.6 Glucose TNP 81 Calcium TNP 9.9 Magnesium TNP 2.1 Total Bilirubin TNP 0.3 AST TNP 23 ALT TNP 18 Alkaline Phosphatase TNP 76 Troponin I High Sens 3.8 (0-14) pg/ml Total Protein TNP 7.2 Albumin TNP 3.9 Globulin TNP 3.3 Albumin/Globulin Ratio TNP 1.2 TSH 2.109 (0.300-4.500) uIu/ml Urine Color Yellow Urine Appearance Clear (Clear) Urine pH 5.5 (4.5-7.5) Ur Specific Hancock 1.011 (1.000-1.030) Urine Protein Negative (Negative) Urine Glucose (UA) Negative (Negative) Urine Ketones Negative (Negative) Urine Blood Negative (Negative) Urine Nitrite Negative (Negative) Urine Bilirubin Negative (Negative) Urine Urobilinogen Negative (Negative) Ur Leukocyte Esterase Negative (Negative) Urine Comment Administered Medications Discontinued Medications Acetaminophen (Ofirmev) 1,000 mg in 100 mls @ 400 mls/hr IV NOW STA Stop: 07/03/25 07:54 Last Admin: 07/03/25 08:31 Dose: 400 mls/hr Documented By: CHELLE Ioversol (Optiray 320 125ml) 112 ml IV ONCE ONE Stop: 07/03/25 12:27 Last Admin: 07/03/25 12:26 Dose: 112 ml Documented By: DARIEN Imaging Data Radiologist's Impression: Chest X-Ray 07/03/25 06:45 EXAM: XR chest 1V portable CLINICAL HISTORY: fall; R rib pain TECHNIQUE: An X-ray image of the chest was obtained in AP projection. COMPARISON: Previous CT done at 01/07/2025 was reviewed. FINDINGS: Pulmonary Parenchyma: The lungs are clear bilaterally. No evidence of consolidation, collapse, or focal opacities. No pulmonary nodules are identified. No evidence of pleural effusion or pleural thickening. Heart and Mediastinum: Heart size is normal. No mediastinal widening or masses. No hilar or mediastinal lymphadenopathy. Bony Thorax: The bony thorax appears intact without fractures or deformities. Soft Tissues: Soft tissues overlying the chest wall are unremarkable. IMPRESSION: No acute cardiopulmonary abnormalities are identified. Electronically signed by Jose De Jesus Rojas 07-03-2025 08:[address] 07/03/25 06:45 EXAM: CT head/brain wo con CLINICAL HISTORY: Fall; confusion TECHNIQUE: Axial non-contrast CT scan of the brain was performed from the skull base to the high parietal region with axial, sagittal, and coronal reconstructions. One of the following dose reduction techniques was utilized for this exam: automated exposure control, adjustment of the mA and/or kV according to patient size, and use of iterative reconstruction. COMPARISON: None. FINDINGS: Brain Parenchyma: Normal attenuation of the cerebral hemispheres, cerebellum, and brainstem. No evidence of acute infarct, hemorrhage, or mass effect. No abnormal areas of hypo- or hyperattenuation. Ventricular System: Ventricles are normal in size and configuration. No evidence of hydrocephalus or ventricular enlargement. Subarachnoid Spaces: Normal sulci and cisterns. No evidence of subarachnoid hemorrhage or extra-axial fluid collections. Cerebellum and Brainstem: No masses, lesions, or areas of abnormal density. Orbits: Normal appearance of the globes, optic nerves, and extraocular muscles. No evidence of orbital masses or abnormal density. Sinuses: Clear paranasal sinuses. No evidence of sinusitis or mucosal thickening. Mastoid Air Cells: Clear mastoid air cells. No evidence of mastoiditis. Skull: Normal skull morphology. IMPRESSION: Normal CT of the head without contrast. Electronically signed by Jose De Jesus Rojas 07-03-2025 08:06 AM Head CTA 07/03/25 10:08 CTA ANGIOGRAPHY OF THE HEAD CLINICAL HISTORY: Confusion. COMPARISON STUDY: Head CT performed earlier today. TECHNIQUE: Helical axial images of the head were obtained following uneventful intravenous administration of 112 cc of Optiray. Sagittal and coronal reconstructions were viewed as well as maximal intensity projections on an independent 3-D workstation. Automated exposure control was utilized for the study. A dose lowering technique was utilized adhering to the principles of ALARA. FINDINGS: No acute intracranial hemorrhage is identified on this unenhanced exam. Ventricular system is unremarkable. The basal cisterns are patent. There are no extra axial collections. The bilateral M1, M2, A1 and A2 segments are patent. There is no intracranial aneurysm. Posterior circulation is intact. No stenoses within the intracranial vessels are present. There is no vessel occlusion. Major dural sinuses are patent. IMPRESSION: Unremarkable CTA of the head. ACT 112: Negative or not required by law. Electronically signed by: Tommy Stein M.D. 07/03/2025 12:45 PM Neck CTA 07/03/25 10:08 CT ANGIOGRAM OF THE NECK CLINICAL HISTORY: Change in mental status. COMPARISON STUDY: No priors TECHNIQUE: Following the IV administration of 112 of Optiray 320, CT angiogram of the neck was performed from the aortic arch to the skull base. Images are reviewed in the axial, sagittal, and coronal planes. 3-D MIPS images are created and assessed. IV contrast was administered without complication. All measurements were calculated based on NASCET criteria. A dose lowering technique was utilized adhering to the principles of ALARA. CT DOSE: 517.54 mGy.cm FINDINGS: Thoracic aorta: Visualized portions of the thoracic aorta are normal in caliber. The aortic arch demonstrates standard 3-vessel anatomy. Right carotid arterial system: The right common carotid artery is widely patent, as are the right internal and external carotid arteries. There is tortuosity of the distal ICA. Left carotid arterial system: The left common carotid artery is widely patent, as are the left internal and external carotid arteries. Vertebral arteries: Widely patent bilaterally noting mild left-sided dominance. Subclavian arteries: Widely patent bilaterally. Intracranial vasculature: The visualized intracranial vessels at the skull base are patent. Jugular veins: Patent bilaterally. Brain parenchyma: The visualized brain parenchyma the skull base is within normal limits. Lung apices: Partially visualized upper lobe lung parenchyma appears clear. Soft tissues: The visualized pharyngeal soft tissues are normal in appearance noting angiographic phase technique. The oropharyngeal airway appears widely patent. The salivary and thyroid glands are normal in appearance. No cervical lymphadenopathy is seen. Skeletal structures: The visualized calvarium at the skull base appears intact. The cervical spine is maintained noting mild multilevel spondylosis. Sinuses and mastoids: The visualized paranasal sinuses are clear. The mastoid air cells are well pneumatized. IMPRESSION: Unremarkable CT angiogram of the neck. ACT 112: Negative or not required by law. Electronically signed by: Ritesh Lugo M.D. 07/03/2025 12:42 PM Discharge Plan Visit Data Chief Complaint: Fall Stated Complaint: injury alert, fall ED Provider: Brittany Batista Discharge Problem: Acute confusion, Fall Patient Disposition: Admitted As Inpatient Condition: Fair Forms Stand Alone Forms: [facility] Prescriptions Prescriptions: No Action omeprazole 40 mg capsule,delayed release(DR/EC) 40 mg PO DAILY acetaminophen [Tylenol Extra Strength] 500 mg Tablet 1,000 mg PO .Q6-8HR PRN (Reason: Pain) warfarin [Jantoven] 4 mg tablet 4 mg PO DAILY Rx Instructions: TOTAL DOSE 7 MG--TAKES WITH 3 MG TAB. warfarin [Jantoven] 3 mg tablet 3 mg PO DAILY Rx Instructions: TOTAL DOSE 7 MG--TAKES WITH 4 MG TAB. pramipexole 0.5 mg tablet 0.5 mg PO HS sertraline 50 mg tablet 50 mg PO HS Xhance 93 mcg/actuation aerosol breath activated 2 spray INTRANASAL BID PRN (Reason: NEEDED) oxycodone 5 mg tablet 5 mg PO Q6H PRN (Reason: pain) Qty: 15 0RF Referrals Referrals: Leonel Hall [Primary Care Provider] -
[2025-07-03 07:00] LABS: Hematocrit (blood only) 44.0 % (37.0-47.0); Hemoglobin 14.1 g/dL (12.0-16.0); Immature Granulocytes # (auto) 0.04 K/uL (0.01-0.20); Immature Granulocytes % (auto) 0.8 %; Mean Corpuscular Hemoglobin 27.1 pg (25.0-34.0); Mean Corpuscular Volume 84.6 fL (80.0-100.0); Platelet Count 215 K/uL (130-400); RDW Standard Deviation 44.0 fL (36.4-46.3); Red Blood Count 5.20 M/uL (4.20-5.40); White Blood Count 5.13 K/ul (4.8-10.8)
[2025-07-03 07:48] LABS: Thyroid Stimulating Hormone 2.109 uIu/ml (0.300-4.500)
--- NOTE | 2025-07-03 08:06 | CT Scan Report ---
EXAM: CT head/brain wo con CLINICAL HISTORY: Fall; confusion TECHNIQUE: Axial non-contrast CT scan of the brain was performed from the skull base to the high parietal region with axial, sagittal, and coronal reconstructions. One of the following dose reduction techniques was utilized for this exam: automated exposure control, adjustment of the mA and/or kV according to patient size, and use of iterative reconstruction. COMPARISON: None. FINDINGS: Brain Parenchyma: Normal attenuation of the cerebral hemispheres, cerebellum, and brainstem. No evidence of acute infarct, hemorrhage, or mass effect. No abnormal areas of hypo- or hyperattenuation. Ventricular System: Ventricles are normal in size and configuration. No evidence of hydrocephalus or ventricular enlargement. Subarachnoid Spaces: Normal sulci and cisterns. No evidence of subarachnoid hemorrhage or extra-axial fluid collections. Cerebellum and Brainstem: No masses, lesions, or areas of abnormal density. Orbits: Normal appearance of the globes, optic nerves, and extraocular muscles. No evidence of orbital masses or abnormal density. Sinuses: Clear paranasal sinuses. No evidence of sinusitis or mucosal thickening. Mastoid Air Cells: Clear mastoid air cells. No evidence of mastoiditis. Skull: Normal skull morphology. IMPRESSION: Normal CT of the head without contrast. Electronically signed by Jose De Jesus Rojas 07-03-2025 08:06 AM
[2025-07-03 08:24] LABS: INR 1.5 (0.9-1.1); Prothrombin Time 15.1 Seconds (9.0-12.0)
--- NOTE | 2025-07-03 08:29 | XRay Report ---
EXAM: XR chest 1V portable CLINICAL HISTORY: fall; R rib pain TECHNIQUE: An X-ray image of the chest was obtained in AP projection. COMPARISON: Previous CT done at 01/07/2025 was reviewed. FINDINGS: Pulmonary Parenchyma: The lungs are clear bilaterally. No evidence of consolidation, collapse, or focal opacities. No pulmonary nodules are identified. No evidence of pleural effusion or pleural thickening. Heart and Mediastinum: Heart size is normal. No mediastinal widening or masses. No hilar or mediastinal lymphadenopathy. Bony Thorax: The bony thorax appears intact without fractures or deformities. Soft Tissues: Soft tissues overlying the chest wall are unremarkable. IMPRESSION: No acute cardiopulmonary abnormalities are identified. Electronically signed by Jose De Jesus Rojas 07-03-2025 08:29 AM
[2025-07-03 08:31] LABS: Alanine Aminotransferase 18.0 U/L (7-52); Albumin Globulin Ratio 1.2 (0.9-2); Albumin Level 3.9 gm/dl (3.4-5.0); Alkaline Phosphatase 76.0 U/L (34-104); Anion Gap 5.0 (3-11); Bilirubin,Total 0.3 mg/dl (0.2-1.0); Blood Urea Nitrogen 12.0 mg/dl (6-23); Calcium 9.9 mg/dl (8.6-10.3); Carbon Dioxide 25.0 mmol/L (21-32); Chloride 109.0 mmol/L (98-107); Creatinine Clr Calc Pharmacy 105.2 ml/min; Globulin 3.3 gm/dl (2.5-4.0); Glucose 81.0 mg/dl (70-99(Fasting)); Magnesium 2.1 mg/dl (1.7-2.4); Potassium 4.5 mmol/L (3.5-5.1); Sodium 139.0 mmol/L (136-145); Total Protein 7.2 gm/dl (6.0-8.3)
[2025-07-03] MEDS: ACETAMINOPHEN 1,000 MG/100 ML VIAL IV STA (08:31)
[2025-07-03 10:43] LABS: Appearance Urine Clear (Clear); Glucose Urine UA Negative (Negative)
[2025-07-03] MEDS: OPTIRAY 320 125ml IV ONE (12:26)
--- NOTE | 2025-07-03 12:43 | CT Scan Report ---
CT ANGIOGRAM OF THE NECK CLINICAL HISTORY: Change in mental status. COMPARISON STUDY: No priors TECHNIQUE: Following the IV administration of 112 of Optiray 320, CT angiogram of the neck was perfor med from the aortic arch to the skull base. Images are reviewed in the axial, sagittal, and coronal p lanes. 3-D MIPS images are created and assessed. IV contrast was administered without complication. A ll measurements were calculated based on NASCET criteria. A dose lowering technique was utilized adh ering to the principles of ALARA. CT DOSE: 517.54 mGy.cm FINDINGS: Thoracic aorta: Visualized portions of the thoracic aorta are normal in caliber. The aortic arch demo nstrates standard 3-vessel anatomy. Right carotid arterial system: The right common carotid artery is widely patent, as are the right int ernal and external carotid arteries. There is tortuosity of the distal ICA. Left carotid arterial system: The left common carotid artery is widely patent, as are the left exercise science internship al and external carotid arteries. Vertebral arteries: Widely patent bilaterally noting mild left-sided dominance. Subclavian arteries: Widely patent bilaterally. Intracranial vasculature: The visualized intracranial vessels at the skull base are patent. Jugular veins: Patent bilaterally. Brain parenchyma: The visualized brain parenchyma the skull base is within normal limits. Lung apices: Partially visualized upper lobe lung parenchyma appears clear. Soft tissues: The visualized pharyngeal soft tissues are normal in appearance noting angiographic pha se technique. The oropharyngeal airway appears widely patent. The salivary and thyroid glands are nor mal in appearance. No cervical lymphadenopathy is seen. Skeletal structures: The visualized calvarium at the skull base appears intact. The cervical spine is maintained noting mild multilevel spondylosis. Sinuses and mastoids: The visualized paranasal sinuses are clear. The mastoid air cells are well pneu matized. IMPRESSION: Unremarkable CT angiogram of the neck. ACT 112: Negative or not required by law. Electronically signed by: Ritesh Lugo M.D. 07/03/2025 12:42 PM
--- NOTE | 2025-07-03 12:47 | CT Scan Report ---
CTA ANGIOGRAPHY OF THE HEAD CLINICAL HISTORY: Confusion. COMPARISON STUDY: Head CT performed earlier today. TECHNIQUE: Helical axial images of the head were obtained following uneventful intravenous administr ation of 112 cc of Optiray. Sagittal and coronal reconstructions were viewed as well as maximal inten sity projections on an independent 3-D workstation. Automated exposure control was utilized for the study. A dose lowering technique was utilized adhering to the principles of ALARA. FINDINGS: No acute intracranial hemorrhage is identified on this unenhanced exam. Ventricular system is unremarkable. The basal cisterns are patent. There are no extra axial collections. The bilateral M 1, M2, A1 and A2 segments are patent. There is no intracranial aneurysm. Posterior circulation is int act. No stenoses within the intracranial vessels are present. There is no vessel occlusion. Major dur al sinuses are patent. IMPRESSION: Unremarkable CTA of the head. ACT 112: Negative or not required by law. Electronically signed by: Tommy Stein M.D. 07/03/2025 12:45 PM
--- NOTE | 2025-07-03 14:41 | History & Physical Report ---
Date of Service July 03, 2025 Assessment & Plan (1) Fall: (2) Acute confusion: Plan 50yo female with history of Prothrombin gene mutation with prior DVT/CVA on Coumadin anticoagulation presenting with a fall and confusion with aphasia Patient with previous history of strokes in the past. Tortuous varicosities, tenderness to palpation, warmth and mild erythema. Venous doppler study performed - results are pending. Preliminary read reveals no DVT. Mostly occlusive thrombus in the varicose veins of the left lateral calf - extensive, appx 30cm in length #Altered mental status - Patient with an unwitnessed fall Was found to have confusion and slurred speech after the fall will admit montor over night obtain limited echo INR not at goal which may have been plating a role will order MRI #Prothrombin gene mutation - on anticoagulation with Coumadin. -Continue Coumadin -Repeat INR in AM #Restless leg syndrome -Continue Pramipexole #Anxiety -Continue Sertraline History of Present Illness Primary Care Provider: Leonel Declanjassi 50 yo female with history of Prothrombin gene mutation with prior DVT/CVA TIA on Coumadin anticoagulation had a fall. Fall was unwitnessed but appeared to be mechanical When she was on the ground she was then found to be aphasic, slurring words. Her reports this is her typical presentation on when she had strokes in the past. During her time Enroute to the hospital she was having spells of confusion and aphasia. Her is at bedside and reports she had a TIA in 2005, stoke in 2009 and 2014 She also had a PFO which was closed. Allergies Allergy/AdvReac Type Severity Reaction Status Date / Time morphine Allergy Intermediate Hives Verified 10/10/24 07:25 Sulfa (Sulfonamide Allergy Intermediate Hives Verified 10/10/24 07:25 Antibiotics) Home Medications Medication Instructions Recorded Confirmed Type acetaminophen 500 mg tablet 1,000 mg PO .Q6-8HR PRN Pain 10/09/24 07/03/25 History (Tylenol Extra Strength) omeprazole 40 mg capsule,delayed 40 mg PO DAILY 10/09/24 07/03/25 History release pramipexole 0.5 mg tablet 0.5 mg PO HS 10/09/24 07/03/25 History sertraline 50 mg tablet 50 mg PO HS 10/09/24 07/03/25 History warfarin 3 mg tablet (Jantoven) 3 mg PO DAILY 10/09/24 07/03/25 History warfarin 4 mg tablet (Jantoven) 4 mg PO DAILY 10/09/24 07/03/25 History teriparatide 20 mcg/dose (560 20 mcg subcut HS 07/03/25 07/03/25 History mcg/2.24 mL) subcutaneous pen injector Past Med/Surg History Problem List Fall (Acute) Acute confusion (Acute) Superficial thrombophlebitis Abnormal ultrasound of lower extremity (Acute) Anemia (Acute) Pain of left calf (Acute) Medical History Anxiety Restless leg syndrome DVT (deep venous thrombosis) Prothrombin gene mutation CVA (cerebral vascular accident) Surgical History History of lumbar fusion History of hysterectomy History of repair of atrial septal defect Family History Other Cancer Diabetes Social History Smoking Status: Heavy tobacco smoker Tobacco Type: Cigarettes Second Hand Exposure: Yes; Do You Dip or Chew Tobacco: No; Hx Alcohol Use: Yes Alcohol type: beer and hard liquor Hx Substance Use: No Preferred Language: [place] Communication Ability: Effective Veneer Sawyer Required: No Beliefs That Will Affect Care: None Current Living Situation: Spouse and Parent Other Information That Helps Us Care for You: No Feels Safe at Home: Yes Safety Concerns: Feels Safe At This Time Assistive Devices: None Review of Systems Constitutional: no fever Eyes: + blind spots Ear, Nose, Mouth, Throat: no ear pain Respiratory: no cough Cardiovascular: no chest pain Gastrointestinal: no abdominal pain Genitourinary: no dysuria Musculoskeletal: no back pain Neurologic: no gait abnormality Psychiatric: no behavioral changes Endocrine: no fatigue Hematologic / Lymphatic: no easy bleeding Allergy / Immunological: no GI upset with certain foods Physical Exam Constitutional: WD/WN, vitals as above Eyes: PERRL, conjunctivae normal, anicteric sclerae ENMT: external ear and nose normal, oropharynx normal Neck: trachea midline, no thyromegaly Respiratory: normal respiratory effort, lungs clear to auscultation Cardiovascular: RRR, no murmur, no edema Gastrointestinal (Abdomen): normal bowel sounds, soft, nontender, no hepatosplenomegaly Musculoskeletal: no cyanosis or clubbing, extremities motor strength 5/5 Skin: no rashes, warm and dry Neurologic: PERRL, EOMI, accommodation nl, no face palsy, no dysarthria Psychiatric: A+Ox3, euthymic affect Lymphatic: no cervical or axillary lymphadenopathy Results & Data Results & Data Vital Signs (Past 12 Hours) Vital Signs Temp Pulse Pulse Resp BP BP Pulse Ox 07/03/25 12:12 83 14 94 07/03/25 12:00 125/96 07/03/25 12:00 125/96 07/03/25 12:00 125/96 07/03/25 12:00 125/96 07/03/25 12:00 125/96 07/03/25 12:00 71 94 07/03/25 12:00 36.8 C 07/03/25 11:51 70 23 95 07/03/25 11:42 76 94 07/03/25 11:31 119/73 07/03/25 11:31 119/73 07/03/25 11:31 119/73 07/03/25 11:31 119/73 07/03/25 11:31 119/73 07/03/25 11:30 86 16 07/03/25 11:21 81 18 07/03/25 11:12 70 22 07/03/25 11:00 71 07/03/25 10:54 77 07/03/25 10:42 92 H 22 07/03/25 10:37 76 07/03/25 10:30 85 20 07/03/25 10:21 81 20 97 07/03/25 10:12 83 21 95 07/03/25 10:00 71 96 07/03/25 10:00 123/85 07/03/25 10:00 123/85 07/03/25 10:00 123/85 07/03/25 10:00 123/85 07/03/25 10:00 123/85 07/03/25 10:00 36.8 C 07/03/25 09:51 67 95 07/03/25 09:45 71 21 07/03/25 09:30 126/104 H 07/03/25 09:30 126/104 H 07/03/25 09:30 126/104 H 07/03/25 09:30 126/104 H 07/03/25 09:30 126/104 H 07/03/25 09:30 76 17 97 07/03/25 09:21 80 15 97 07/03/25 09:12 74 24 95 07/03/25 09:00 36.8 C 07/03/25 09:00 138/100 07/03/25 09:00 138/100 07/03/25 09:00 138/100 07/03/25 09:00 138/100 07/03/25 09:00 138/100 07/03/25 09:00 75 95 07/03/25 08:51 68 24 96 07/03/25 08:42 74 23 94 07/03/25 08:31 142/93 H 07/03/25 08:31 142/93 H 07/03/25 08:31 142/93 H 07/03/25 08:31 142/93 H 07/03/25 08:31 142/93 H 07/03/25 08:30 78 96 07/03/25 08:12 74 07/03/25 08:00 82 17 07/03/25 07:51 76 24 07/03/25 07:42 80 07/03/25 07:30 74 97 07/03/25 07:21 73 95 07/03/25 07:12 73 95 07/03/25 07:12 137/91 07/03/25 07:12 137/91 07/03/25 07:12 137/91 07/03/25 07:12 137/91 07/03/25 07:12 137/91 07/03/25 06:51 77 18 07/03/25 06:46 133/99 07/03/25 06:46 133/99 07/03/25 06:46 133/99 07/03/25 06:46 133/99 07/03/25 06:46 133/99 07/03/25 06:46 75 20 95 07/03/25 06:45 79 18 95 07/03/25 06:42 82 28 H 95 07/03/25 06:39 74 19 96 07/03/25 06:38 136/106 H 07/03/25 06:38 136/106 H 07/03/25 06:38 136/106 H 07/03/25 06:38 136/106 H 07/03/25 06:38 136/106 H 07/03/25 06:38 77 07/03/25 06:30 36.9 C 76 20 133/99 96 07/03/25 06:30 36.9 C 79 20 136/106 H 96 O2 Del Method 07/03/25 12:12 07/03/25 12:00 07/03/25 12:00 07/03/25 12:00 07/03/25 12:00 07/03/25 12:00 07/03/25 12:00 07/03/25 12:00 07/03/25 11:51 07/03/25 11:42 07/03/25 11:31 07/03/25 11:31 07/03/25 11:31 07/03/25 11:31 07/03/25 11:31 07/03/25 11:30 07/03/25 11:21 07/03/25 11:12 07/03/25 11:00 07/03/25 10:54 07/03/25 10:42 07/03/25 10:37 07/03/25 10:30 07/03/25 10:21 07/03/25 10:12 07/03/25 10:00 07/03/25 10:00 07/03/25 10:00 07/03/25 10:00 07/03/25 10:00 07/03/25 10:00 07/03/25 10:00 07/03/25 09:51 07/03/25 09:45 07/03/25 09:30 07/03/25 09:30 07/03/25 09:30 07/03/25 09:30 07/03/25 09:30 07/03/25 09:30 07/03/25 09:21 07/03/25 09:12 07/03/25 09:00 Room Air 07/03/25 09:00 07/03/25 09:00 07/03/25 09:00 07/03/25 09:00 07/03/25 09:00 07/03/25 09:00 07/03/25 08:51 07/03/25 08:42 07/03/25 08:31 07/03/25 08:31 07/03/25 08:31 07/03/25 08:31 07/03/25 08:31 07/03/25 08:30 07/03/25 08:12 07/03/25 08:00 07/03/25 07:51 07/03/25 07:42 07/03/25 07:30 07/03/25 07:21 07/03/25 07:12 07/03/25 07:12 07/03/25 07:12 07/03/25 07:12 07/03/25 07:12 07/03/25 07:12 07/03/25 06:51 07/03/25 06:46 07/03/25 06:46 07/03/25 06:46 07/03/25 06:46 07/03/25 06:46 07/03/25 06:46 Room Air 07/03/25 06:45 07/03/25 06:42 07/03/25 06:39 07/03/25 06:38 07/03/25 06:38 07/03/25 06:38 07/03/25 06:38 07/03/25 06:38 07/03/25 06:38 07/03/25 06:30 Room Air 07/03/25 06:30 Room Air PG Care Time/CCT Total # of Minutes Spent Total Time Spent with Patient: Total time spent is greater than 50% in coordination of care (as documented) at patient's floor/unit and/or counseling patient: Coding Level of Care Code 51734 INT INP/OBS CARE 3/75MIN Diagnoses Fall W19.XXXA Acute confusion R41.0
--- NOTE | 2025-07-03 15:49 | Magnetic Resonance Report ---
MRI OF THE BRAIN WITHOUT IV CONTRAST CLINICAL HISTORY: Confusion. Dizziness. Fall. COMPARISON STUDY: Head CT and CTA of the head performed earlier today. TECHNIQUE: MRI of the brain was performed utilizing various T1 and T2-weighted sequences in the axial , sagittal, and coronal planes. IV contrast was not administered for this examination. FINDINGS: Brain parenchyma: There are no foci of restricted diffusion to suggest acute infarct. No acute intrac ranial hemorrhage, midline shift or mass effect is present. No intracranial masses are identified on unenhanced exam. Brain volume is normal. A few white matter T2 hyperintense foci are noted. These fav or small vessel disease. There is a 1.1 cm subcortical T2 hyperintense focus within the left frontal lobe. A few punctate T2 hyperintense foci within the bilateral cerebellar hemispheres are also presen t. Ventricles, sulci, and cisterns: There is no hydrocephalus. The basal cisterns are patent. There are no extra-axial collections. Pituitary and sella: Unremarkable. Intracranial vasculature: Flow-voids for the major intracranial vessels are present. Orbits: Orbital contents are unremarkable. Sinuses and mastoids: Clear. Calvarium: No calvarial lesions are identified. Cervical cord: Partially visualized cervical spinal cord is normal in morphology and signal intensity . IMPRESSION: 1. No acute intracranial findings. 2. A few white matter T2 hyperintense foci suggestive of mild small vessel disease. 1.1 cm subcortica l left frontal lobe T2 hyperintense focus which could represent small vessel disease or a small old i nfarct. 3. Two punctate T2 hyperintense foci within the cerebellar hemispheres, equivocal for tiny old infarc ts. ACT 112: Negative or not required by law. Electronically signed by: Tommy Stein M.D. 07/03/2025 3:48 PM
--- NOTE | 2025-07-03 16:59 | XRay Report ---
Clinical History: Pain after fall 8 views of the bilateral ribs are submitted for review. Findings: No definite acute rib fracture is seen. There are suspected old fractures of the left ninth rib and the right fourth and fifth ribs. There is a left humeral shaft fracture that appears old. No other osseous abnormality is identified. There are no radiopaque foreign bodies. Impression: 1. No definite acute rib fracture 2. Left humeral shaft fracture, likely old 3. Several old rib fractures Electronically signed by Edward Kelley 07-03-2025 4:58 PM
[2025-07-03] MEDS: WARFARIN SOD 4 MG TAB PO SCH ×2 (17:45→17:46)
[2025-07-03] MEDS ORDERED: FLUTICASONE PROPIONATE NA SPR 16 GM BTL NAE PRN (18:51)
[2025-07-03] MEDS: SERTRALINE HCL 50 MG TABLET PO SCH (20:24)
[2025-07-03] MEDS: PRAMIPEXOLE DIHYDROCHLO 0.5 MG TAB PO SCH (20:25)
[2025-07-04 06:31] LABS: Hematocrit (blood only) 41.4 % (37.0-47.0); Hemoglobin 13.3 g/dL (12.0-16.0); Mean Corpuscular Hemoglobin 27.1 pg (25.0-34.0); Mean Corpuscular Volume 84.5 fL (80.0-100.0); Platelet Count 212 K/uL (130-400); RDW Standard Deviation 44.8 fL (36.4-46.3); Red Blood Count 4.90 M/uL (4.20-5.40); White Blood Count 4.46 K/ul (4.8-10.8)
[2025-07-04 06:55] LABS: INR 4.7 (0.9-1.1); Prothrombin Time 45.7 Seconds (9.0-12.0)
[2025-07-04 07:18] LABS: Anion Gap 6.0 (3-11); Blood Urea Nitrogen 10.0 mg/dl (6-23); Calcium 9.2 mg/dl (8.6-10.3); Carbon Dioxide 26.0 mmol/L (21-32); Chloride 107.0 mmol/L (98-107); Creatinine Clr Calc Pharmacy 106.8 ml/min; Glucose 79.0 mg/dl (70-99(Fasting)); Potassium 4.2 mmol/L (3.5-5.1); Sodium 139.0 mmol/L (136-145)
[2025-07-04] MEDS ORDERED: WARFARIN SOD 4 MG TAB PO SCH (09:00)
[2025-07-04] MEDS ORDERED: WARFARIN SOD 3 MG TAB PO SCH (09:00)
[2025-07-04] MEDS: ASPIRIN 81 MG ECTAB PO SCH (09:44)
[2025-07-04] MEDS: ACETAMINOPHEN 325 MG TAB PO PRN (09:46)
--- NOTE | 2025-07-04 13:57 | XCELERA ---
[id number]_[email or web address]\[id number]}___[id number].pdf
[2025-07-04] MEDS: ONDANSETRON INJ 2 MG/ML 2 ML VIAL IV STA (14:22)
[2025-07-04] MEDS: diphenhydrAMINE 50 MG/ML VIAL IV STA ×2 (14:22→19:53)
[2025-07-04] MEDS: MAGNESIUM SULFATE / D5W 1 GM/100 ML BAG IV SCH (14:22)
--- NOTE | 2025-07-04 16:25 | Hospitalist Progress Note ---
Date of Service July 04, 2025 Assessment & Plan (1) Fall: (2) Acute confusion: Plan 50yo female with history of Prothrombin gene mutation with prior DVT/CVA on Coumadin anticoagulation presenting with a fall and confusion with aphasia Patient with previous history of strokes in the past. Tortuous varicosities, tenderness to palpation, warmth and mild erythema. Venous doppler study performed - results are pending. Preliminary read reveals no DVT. Mostly occlusive thrombus in the varicose veins of the left lateral calf - extensive, appx 30cm in length #Altered mental status - slurred speech INR is subtherapeutic unsure of cause of her altered mental status, ordered MRI brain which was negative. today with a migraine. ordered migraine cocktail #Prothrombin gene mutation - on anticoagulation with Coumadin. INR=1.8 -Continue Coumadin -Repeat INR in AM #Restless leg syndrome -Continue Pramipexole #Anxiety -Continue Sertraline Admission and Anticipated Discharge Date Admission Date: July 03, 2025 Subjective Patient with a migraine, photophobia since 10 am this morning. Patient with no other complaints. Physical Exam Constitutional: WD/WN, vitals as above Eyes: PERRL, conjunctivae normal, anicteric sclerae ENMT: external ear and nose normal, oropharynx normal Neck: trachea midline, no thyromegaly Respiratory: normal respiratory effort, lungs clear to auscultation Cardiovascular: RRR, no murmur, no edema Gastrointestinal (Abdomen): normal bowel sounds, soft, nontender, no hepatosplenomegaly Musculoskeletal: no cyanosis or clubbing, extremities motor strength 5/5 Skin: no rashes, warm and dry Neurologic: PERRL, EOMI, accommodation nl, no face palsy, no dysarthria Psychiatric: A+Ox3, euthymic affect Lymphatic: no cervical or axillary lymphadenopathy Results & Data Results & Data Vital Signs (Past 12 Hours) Vital Signs Temp Pulse Pulse Resp BP Pulse Ox O2 Del Method 07/04/25 15:24 36.9 C 68 18 113/65 93 Room Air 07/04/25 14:45 67 07/04/25 11:57 37.0 C 73 18 120/74 93 Room Air 07/04/25 11:16 78 07/04/25 08:19 36.9 C 77 14 116/80 97 Room Air 07/04/25 08:06 Room Air PG Care Time/CCT Total # of Minutes Spent Total Time Spent with Patient: Total time spent is greater than 50% in coordination of care (as documented) at patient's floor/unit and/or counseling patient: Coding Level of Care Code 03972 SUB INP/OBS CARE 3/50MIN Diagnoses Fall W19.XXXA Acute confusion R41.0
[2025-07-04] MEDS: KETOROLAC TROMETHAMINE 15 MG/ML VIAL IV ONE (19:52)
[2025-07-04] MEDS: MAGNESIUM SULFATE / D5W 1 GM/100 ML BAG IV ONE (19:52)
[2025-07-05 06:22] LABS: Hematocrit (blood only) 40.7 % (37.0-47.0); Hemoglobin 13.1 g/dL (12.0-16.0); Mean Corpuscular Hemoglobin 27.4 pg (25.0-34.0); Mean Corpuscular Volume 85.1 fL (80.0-100.0); Platelet Count 206 K/uL (130-400); RDW Standard Deviation 45.5 fL (36.4-46.3); Red Blood Count 4.78 M/uL (4.20-5.40); White Blood Count 4.68 K/ul (4.8-10.8)
[2025-07-05 06:47] LABS: Anion Gap 4.0 (3-11); Blood Urea Nitrogen 12.0 mg/dl (6-23); Calcium 9.2 mg/dl (8.6-10.3); Carbon Dioxide 28.0 mmol/L (21-32); Chloride 108.0 mmol/L (98-107); Creatinine Clr Calc Pharmacy 86.5 ml/min; Glucose 81.0 mg/dl (70-99(Fasting)); Magnesium 2.5 mg/dl (1.7-2.4); Potassium 4.6 mmol/L (3.5-5.1); Sodium 140.0 mmol/L (136-145)
--- NOTE | 2025-07-05 10:18 | Electrocardiogram Report ---
Test Reason : Blood Pressure : */* mmHG Vent. Rate : 73 BPM Atrial Rate : 73 BPM P-R Int : 142 ms QRS Dur : 94 ms QT Int : 384 ms P-R-T Axes : 31 -2 36 degrees QTcB Int : 423 ms Normal sinus rhythm Normal ECG No previous ECGs available Confirmed by Lew Wu ([id number]) on 07/05/2025 10:18:05 AM Referred By: REFERRED SELF Confirmed By: Lew Wu
[2025-07-05 10:23] LABS: Cholesterol 166.0 mg/dl (0-200); HDL Cholesterol 46.0 mg/dl; Triglycerides 94.0 mg/dl (0-150)
[2025-07-05 10:28] LABS: Prothrombin Time 75.4 Seconds (9.0-12.0)
[2025-07-05] MEDS: MECLIZINE HCL 25 MG TAB PO STA (10:47)
[2025-07-05] MEDS: ONDANSETRON INJ 2 MG/ML 2 ML VIAL IV PRN (10:55)
[2025-07-05 11:02] LABS: INR 8.0 (0.9-1.1)
[2025-07-05 11:28] LABS: Chlamydia pneumoniae PCR Not Detected (NotDetected); Coronavirus 229E PCR Not Detected (NotDetected); Coronavirus CoV-2 (COVID19)PCR Not Detected (NotDetected); Coronavirus HKU1 PCR Not Detected (NotDetected); Coronavirus NL63 PCR Not Detected (NotDetected); Coronavirus OC43PCR Not Detected (NotDetected); Human Metapneumovirus PCR Not Detected (NotDetected); Parainfluenza Virus 1 PCR Not Detected (NotDetected); Parainfluenza Virus 2 PCR Not Detected (NotDetected); Parainfluenza Virus 3 PCR Not Detected (NotDetected); Parainfluenza Virus 4 PCR Not Detected (NotDetected); Respiratory Syncytial VirusPCR Not Detected (NotDetected); Rhinovirus/Enterovirus PCR Not Detected (NotDetected)
--- NOTE | 2025-07-05 13:28 | CT Scan Report ---
CT head/brain wo con CLINICAL HISTORY: 50 years-old Female with dizziness. Acute dizziness TECHNIQUE: Multiple axial CT images of the head were obtained without contrast. A dose lowering tech nique was utilized adhering to the principles of ALARA. CT DOSE: 625.8 mGy.cm COMPARISON: Head CT 07/03/2025 FINDINGS: No acute intracranial hemorrhage, midline shift, intracranial mass, hydrocephalus, territorial ischem ia or abnormal extra-axial collection. The calvarium is intact. The paranasal sinuses, mastoid air cells, and middle ear cavities are clear . IMPRESSION: No acute intracranial abnormality identified. ACT 112: Negative or not required by law. The above report was generated using voice recognition software. It may contain grammatical, syntax o r spelling errors. Electronically signed by: Eagle Rios M.D. 07/05/2025 1:26 PM
--- NOTE | 2025-07-05 15:29 | Magnetic Resonance Report ---
MR ANGIOGRAM OF THE BRAIN CLINICAL HISTORY: Fall. Dizziness. COMPARISON STUDY: CT angiogram of the brain dated 07/03/2025. TECHNIQUE: 3-D lanc-sl-yculgr MR angiography of the intracranial circulation is performed. 3-D tumble views are created and assessed. IV contrast was not administered for this examination. FINDINGS: The internal carotid arteries are widely patent bilaterally, as are the anterior and middle cerebral arteries. The vertebrobasilar system and posterior cerebral arteries are widely patent. The left vertebral artery is dominant. There is no aneurysm, high-grade stenosis, or focal vessel cutof f seen throughout the intracranial circulation. The brain parenchyma is normal as visualized. IMPRESSION: Unremarkable MR angiogram of the brain. ACT 112: Negative or not required by law. Electronically signed by: Ritesh Lugo M.D. 07/05/2025 3:28 PM
--- NOTE | 2025-07-05 15:45 | Magnetic Resonance Report ---
MR VENOGRAM OF THE BRAIN CLINICAL HISTORY: Pulsatile tinnitus. Dizziness. COMPARISON STUDY: CT exam of the brain dated 07/03/2025. TECHNIQUE: Unenhanced sagittal MR venogram of the brain is performed. 3-D reformats are created and a ssessed. IV contrast was not administered for this examination. FINDINGS: The superior sagittal sinus is widely patent, as are the transverse sinuses, sigmoid sinuse s, and the visualized internal jugular veins. The left transverse sinus is diminutive as compared to the right, and there are small collateral veins along the right tentorium. These were better assessed on the recent CT angiogram. The inferior sagittal sinus and the straight sinus are patent. IMPRESSION: Normal MR venogram of the brain. Electronically signed by: Ritesh Lugo M.D. 07/05/2025 3:43 PM
[2025-07-05] MEDS: GADOBUTROL 65ML VIAL IV ONE (15:51)
[2025-07-05 16:21] VITALS: TEMP 98.2
--- NOTE | 2025-07-05 16:23 | Magnetic Resonance Report ---
Clinical History: Dizziness Technique: Multiple T1 and T2-weighted magnetic resonance images were obtained of the brain both before and after the administration of 11.5 cc of Gadavist intravenous gadolinium contrast. Thin section images were obtained through the internal auditory canals Comparison is made to the noncontrast MRI dated 07/03/2025 Findings: There is no sign of acute or old infarction with normal-appearing diffusion weighted images. There are a few small foci of increased T2 signal intensity in the periventricular and subcortical white matter, likely due to mild chronic small vessel ischemic disease. No mass lesion or other area of abnormal enhancement is identified. Specifically, there is no definite vestibular schwannoma or other lesion involving the internal auditory canals or cerebellopontine angles bilaterally. No definite abnormality of the proximal trigeminal nerves is seen. There is no intracranial hemorrhage or other fluid collection. No midline shift or other form of herniation is seen. There is no hydrocephalus. The pituitary gland appears normal. Normal flow-voids are seen within the arteries of the [id number]. The orbits and paranasal sinuses appear normal. The mastoid air cells appear clear Impression: 1. No sign of vestibular schwannoma or other mass lesion 2. Mild white matter abnormalities, likely due to chronic small vessel ischemic disease Electronically signed by Edward Kelley 07-05-2025 4:23 PM
[2025-07-05] MEDS: diphenhydrAMINE 50 MG/ML VIAL IV STA (16:53)
[2025-07-05] MEDS: ONDANSETRON INJ 2 MG/ML 2 ML VIAL IV STA (16:54)
[2025-07-05 20:04] LABS: Prothrombin Time 66.6 Seconds (9.0-12.0)
[2025-07-05 20:08] LABS: INR 7.0 (0.9-1.1)
[2025-07-05 20:09] VITALS: PULSE 65; RESP 17; O2SAT 95
--- NOTE | 2025-07-05 20:14 | Discharge Summary ---
Discharge Summary Date of Service July 05, 2025 Principal Dx & Hospital Course #1 = Principal Diagnosis (1) Fall: (2) Acute confusion: Plan 50yo female with history of Prothrombin gene mutation with prior DVT/CVA on Coumadin anticoagulation presenting with a fall and confusion with aphasia Patient with previous history of strokes in the past. Tortuous varicosities, tenderness to palpation, warmth and mild erythema. Venous doppler study performed - results are pending. Preliminary read reveals no DVT. Mostly occlusive thrombus in the varicose veins of the left lateral calf - extensive, appx 30cm in length #Altered mental status - slurred speech INR is subtherapeutic unsure of cause of her altered mental status, ordered MRI brain which was negative. today with a migraine. ordered migraine cocktail #Prothrombin gene mutation - on anticoagulation with Coumadin. INR=1.8 -Continue Coumadin -Repeat INR in AM #Restless leg syndrome -Continue Pramipexole #Anxiety -Continue Sertraline Admission HPI Per Admitting Provider 50 yo female with history of Prothrombin gene mutation with prior DVT/CVA TIA on Coumadin anticoagulation had a fall. Fall was unwitnessed but appeared to be mechanical When she was on the ground she was then found to be aphasic, slurring words. Her reports this is her typical presentation on when she had strokes in the past. During her time Enroute to the hospital she was having spells of confusion and aphasia. Her is at bedside and reports she had a TIA in 2005, stoke in 2009 and 2014 She also had a PFO which was closed. Discharge Plan Discharge Items Patient Disposition: Home - Self-Care Reason For Visit: FALL/ALTERED MENTAL STATUS Discharge Diagnosis: fall altered mental status Condition on Discharge: Fair Activity: Resume your previous activity Non-emergency contact: Primary Care Provider Call non-emergency contact if: you have any medication questions Follow-up/Referrals: Leonel Hall [Primary Care Provider] - Diet: Regular Ambulatory Orders: Prothrombin Time INR (Routine) Timeframe: [id number] Location: Determined by Patient Ordered By: Telly Mariee Attending Provider Instructions: Recommend followup with Neurology to followup for complex migraines. Recommend if you continue to have pulsation in your ears, to folllowup with an ENT doctor. Try not to turn to your left as the dizziness could be BPPV which is benign positional vertigo vs a vestibular migraine. It may take a few days for the dizziness to go away. Would limit driving until you are feeling much better. Since INR is 7, we can recheck your INR on Tuesday instead of tomorrow. Pending Studies at Discharge: No Stand-Alone Forms: [facility], Smoking Cessation Medications and DC Order Prescriptions: Continued omeprazole 40 mg capsule,delayed release(DR/EC) 40 mg PO DAILY acetaminophen [Tylenol Extra Strength] 500 mg Tablet 1,000 mg PO .Q6-8HR PRN (Reason: Pain) warfarin [Jantoven] 4 mg tablet 4 mg PO DAILY Rx Instructions: TOTAL DOSE 7 MG--TAKES WITH 3 MG TAB. warfarin [Jantoven] 3 mg tablet 3 mg PO DAILY Rx Instructions: TOTAL DOSE 7 MG--TAKES WITH 4 MG TAB. pramipexole 0.5 mg tablet 0.5 mg PO HS sertraline 50 mg tablet 50 mg PO HS teriparatide 20 mcg/dose (560mcg/2.24mL) pen injector 20 mcg SUBCUT HS Discharge Orders: Discharge Order (Routine); Ordered 07/05/25 Ordered By: Telly Meraz Admission Data Admit Date/Time: 07/03/25 13:34 Attending Provider: Telly Meraz Admit Provider: Telly Meraz Primary Care Provider: Leonel Hall Other Providers: Telly Meraz Hospital Stay Data Consultations 07/03/25 12:15 ED Decision to Admit Stat Diagnostic Imagining Performed 07/03/25 06:45 CT head/brain wo con Stat 07/03/25 10:08 CTA head w con [CT angio head w con] Stat CTA neck with con [CT angio neck with con] Stat 07/03/25 14:29 MR brain wo con Urgent 07/05/25 11:54 CT head/brain wo con Stat 07/05/25 12:22 MR brain IAC wo/w con Urgent 07/05/25 12:28 MR angio head wo con Urgent MR venography head wo con Urgent Pending Results Patient Have Any Pending Studies at Discharge: No Discharge Instructions Given to Patient (Per Discharging Provider) Recommend followup with Neurology to followup for complex migraines. Recommend if you continue to have pulsation in your ears, to folllowup with an ENT doctor. Try not to turn to your left as the dizziness could be BPPV which is benign positional vertigo vs a vestibular migraine. It may take a few days for the dizziness to go away. Would limit driving until you are feeling much better. Since INR is 7, we can recheck your INR on Tuesday instead of tomorrow. Coding Diagnoses Fall W19.XXXA Acute confusion R41.0
[2025-07-05 20:52] VITALS: BP 126/75
== END 2025-07-05 21:30 | disposition home or self-care (01) | DRG 948 ==
LOC: SUATTDRO → ED 06:29 → 2S 13:34